=== PATIENT | female | born 2000 | race Caucasian/White ===

== ENCOUNTER 2021-07-20 19:45 | Emergency (ER) | payer MEDICAID, SELFPAY ==
[2021-07-20 19:56] VITALS: BP 108/71; PULSE 104; RESP 14; TEMP 36.7; O2SAT 96
--- NOTE | 2021-07-20 20:17 | ED_ITS ---
HPI - Ear Problem General: Chief complaint: Ear Stated complaint: ear pain Time Seen by Provider: 07/20/21 19:59 History of Present Illness: Patient is a 20-year-old female comes to the ED with bilateral ear pain. Mother is present says patient has an intellectual disability and is helping provide history. She has been complaining of ear pain for the past 2 days. She is not having any other symptoms. Mother is unsure if patient is actually having ear pain and says she has done these kinds of things before where she starts developing symptoms when someone else in the house starts getting sick. She has not noticed patient pulling or touching ears. Mother says she just moved to [place] and would like to get patient set up with a primary care physician. Denies any drainage from ears. Denies any fevers, nasal congestion/drainage, cough, nausea/vomiting, bladder or bowel symptoms. Associated symptoms: Reports ear or mastoid pain (Bilateral); Denies fever(s), headache(s) or neck pain Review of Systems Const: Denies: fever(s), chills or fatigue Eyes: Denies: change in vision or eye discomfort ENMT: Reports: ear or mastoid pain (Bilateral); Denies: throat pain, odynophagia, nasal discharge or nasal congestion Card: Denies: chest pain, palpitations, edema, swelling of feet/ankles, dyspnea on exertion or orthopnea Resp: Denies: dyspnea, productive cough or non-productive cough GI: Denies: abdominal pain, nausea, vomiting, diarrhea, constipation or hematochezia : Denies: flank pain, dysuria or hematuria Musc: Denies: neck pain, back pain or extremity swelling Skin/Breast: Denies: rash or new lesions Neuro: Denies: headache(s), numbness in extremities or weakness in extremities PFS ED PFSH: Medical History No pertinent family history Surgical History No pertinent past surgical history Physical Exam Const: COMMON NORMALS: no acute distress, healthy appearing and alert GENERAL APPEARANCE: cooperative and comfortable HENMT: COMMON NORMALS: normocephalic, external ears normal, EAC's normal and TM's normal bilaterally HEAD & SCALP: normocephalic EXTERNAL EAR: Yes external ears normal EXTERNAL AUDITORY CANAL: EAC's normal TYMPANIC MEMBRANE: TM's normal bilaterally MOUTH: Normal oral and palatal mucosa present THROAT: posterior oropharynx normal and uvula midline Eye: COMMON NORMALS: Equal, round and reactive pupils present and conjunctivae normal CONJUNCTIVA: Yes conjunctivae normal PUPIL: Yes Equal, round and reactive pupils present Neck/C-Spine: COMMON NORMALS: supple GENERAL: Yes normal visual inspection Resp: COMMON NORMALS: normal respiratory effort, No retractions, No use of accessory muscles and clear to auscultation bilaterally AUSCULTATION: clear to auscultation bilaterally Cardio: COMMON NORMALS: regular rate, regular rhythm, S1 normal heart sound present, S2 normal heart sound present, No gallops present (Cardio), No clicks present (Cardio), No murmurs present (Cardio) and Peripheral pulses 2+ throughout RATE: regular rate RHYTHM: regular rhythm HEART SOUNDS: S1 normal heart sound present and S2 normal heart sound present PERIPHERAL P ULSES: Peripheral pulses 2+ throughout GI: COMMON NORMALS: Normal to inspection, nondistended, normoactive bowel sounds present, Soft to palpation, non-tender and no masses PALPATION: Yes Soft to palpation : COMMON NORMALS: Yes no CVA tenderness BLADDER/KIDNEY EXAM: Yes no CVA tenderness Back/Pelvis: COMMON NORMALS: no CVA tenderness Extremity: COMMON NORMALS: normal to inspection Neuro: COMMON NORMALS: moves all extremities SENSORIUM/ORIENTATION: Yes alert Skin: GENERAL SKIN EXAM: dry skin Course Vital Signs: Vital signs: Vital Signs Temperature 98.0 F 07/20/21 19:56 Pulse Rate 104 H 07/20/21 19:56 Respiratory Rate 14 07/20/21 19:56 Blood Pressure 108/71 07/20/21 19:56 Pulse Oximetry 96 07/20/21 19:56 MDM - Ear Medical Decision Making Patient is a 20-year-old female that has been intellectual disability and is brought and is brought in by her mother with bilateral ear pain. Mother says she has been having ear pain now for 3 days. Denies any other symptoms such as fever, upper respiratory symptoms, vomiting, bladder or bowel symptoms. Vitals are stable. Patient has normal ear exam and the rest of exam is benign. Patient and mother are new in town and would like to get a referral to a local primary care doctor for patient to get established with. I placed an order with case management for patient referred to PCP. She was diagnosed with normal ear exam and discharged charged home. Discharge Plan Discharge Patient Disposition: Home Clinical Impression: Normal ear exam Condition: Stable Discharge Orders: Discharge ED (Routine); Ordered 07/20/21 Ordered By: Luis Johnson Discharge Diet: Regular Discharge Activity: Resume usual activity Activity Restrictions/Additional Instructions: Follow-up with medical provider as directed. Case management should be contacting you in the next several days to set up an appointment with a primary care physician for follow-up. Return to the ER or your medical provider if condition worsens. Please read and understand discharge instructions. Thank you for choosing [facility] for your healthcare needs today. Please realize this is an emergency room and that we are providing you with a medical screening exam and this may not be complete and all inclusive of all the testing and or work up that you may need to determine your ailment or severity of your illness. It is very important that you follow up as instructed or that you return to the Emergency Department should you have concerns or if your condition changes or worsens in any way. Coding Level of Care Code ED Network Engineering Advisor for Wanda Fwd Exam Comprehensive
--- NOTE | 2021-07-23 10:29 | DCPLANNER ---
safety and occupational health manager had message to speak with patient about getting established with a primary care physician. safety and occupational health manager called the phone number in the chart, unable to speak with anyone at this time. safety and occupational health manager left a voicemail for patient to return gearcase assembler phone call.
== END 2021-07-20 20:25 | disposition home or self-care (01) ==
PROVIDERS: Emergency Provider Physician Assistant
DX: H92.03 Otalgia, bilateral (principal)
CPT/HCPCS: 99282

== ENCOUNTER 2021-11-18 15:32 | Emergency (ER) | payer MEDICAID, SELFPAY ==
[2021-11-18 15:46] VITALS: BP 110/70; PULSE 85; RESP 16; TEMP 37.1; O2SAT 97
--- NOTE | 2021-11-18 16:43 | W.ED.SKABFB ---
HPI - Skin/Abscess/Foreign Bdy General: Chief complaint: Skin/Abscess/Foreign Body Stated complaint: rash and lump on L side Time Seen by Provider: 11/18/21 16:34 Source: patient Mode of arrival: ambulatory Limitations: no limitations History of Present Illness: 21-year-old female states she had a rash to her lower legs she is seen in urgent care has been trying steroid cream with minimal improvement patient's brother has had a similar rash states is very pruritic denies any shortness of breath denies any worsening improving factors. Associated symptoms: Deny chills, fever(s), nausea or vomiting Review of Systems Const: Denies: fever(s), chills, body aches or change in appetite Eyes: Denies: blurry vision or eye discomfort ENMT: Denies: throat pain or dental pain Card: Denies: chest pain Resp: Denies: dyspnea GI: Denies: abdominal pain, nausea, vomiting or diarrhea : Denies: dysuria Musc: Denies: neck pain or back pain Skin/Breast: Denies: rash Neuro: Denies: headache(s) Psych: Denies: depression Johann/Lymph: Denies: easy bruising All/Imm: Denies: urticaria PFSH ED PFSH: Medical History No pertinent family history Surgical History No pertinent past surgical history Physical Exam Const: COMMON NORMALS: no acute distress, patient oriented x3 and healthy appearing HENMT: COMMON NORMALS: normocephalic and atraumatic HEAD & SCALP: normocephalic and atraumatic Eye: COMMON NORMALS: Equal, round and reactive pupils present PUPIL: Yes Equal, round and reactive pupils present Neck/C-Spine: COMMON NORMALS: full ROM and supple Chest: COMMONS NORMALS: normal inspection of the chest Resp: COMMON NORMALS: normal respiratory effort Cardio: COMMON NORMALS: regular rate, regular rhythm and No murmurs present (Cardio) RATE: regular rate RHYTHM: regular rhythm GI: INSPECTION: Yes normal to inspection Extremity: COMMON NORMALS: normal to inspection Neuro: COMMON NORMALS: patient oriented x3, moves all extremities and no focal motor deficits Psych: COMMON NORMALS: mental status grossly normal, Normal thought process present and cooperative THOUGHT PROCESS: Normal thought process present Skin: COMMON NORMALS: no wounds NARRATIVE SKIN EXAM: Maculopapular rash to bilateral legs that is pruritic in nature Course Vital Signs: Vital signs: Vital Signs Temperature 98.8 F 11/18/21 15:46 Pulse Rate 85 11/18/21 15:46 Respiratory Rate 16 11/18/21 15:46 Blood Pressure 110/70 11/18/21 15:46 Pulse Oximetry 97 11/18/21 15:46 Oxygen Delivery Me thod 11/18/21 15:46 MDM - Skin/Abscess/Foreign Bdy Medicial Decision Making Patient presents with a rash to her legs here is likely allergic in nature we will start her on a Medrol Dosepak patient's brother has the same symptoms does not really appear to be scabies but will treat for scabies as well just in case with permethrin. She is to follow-up with PCP and return if worsening. Discharge Plan Discharge Patient Disposition: Home Clinical Impression: Rash Condition: Stable Prescriptions: New Medrol (Markell) 4 mg tablets,dose pack 4 mg PO DAILY Qty: 21 0RF permethrin 5 % cream 1 applic topical Q14D Qty: 60 0RF Rx Instructions: apply second treatment 14 days after first treatment if live lice remain Discharge Orders: Discharge ED (Routine); Ordered 11/18/21 Ordered By: Severino Javed Discharge Diet: Advance as tolerated Discharge Activity: Resume usual activity Patient Instructions: Acute Rash (ED) Coding Level of Care Code ED Maintenance Technician for Wanda Coleman
[2021-11-18] MEDS: predniSONE 20 mg Tablet 60 MG PO (16:47)
--- NOTE | 2021-11-18 16:51 | PC.NURSE ---
pt had a couple scabbed over lesions by ankles bilateral. did not seem infected and were not open
== END 2021-11-18 16:53 | disposition home or self-care (01) ==
PROVIDERS: Emergency Provider Emergency Medicine
DX: R21 Rash and other nonspecific skin eruption (principal)
CPT/HCPCS: 99283; J7512

== ENCOUNTER 2022-01-31 11:44 | Observation (INO) | payer MEDICAID, SELFPAY ==
[2022-01-31] VITALS (13 sets, daily range): BP systolic 91–116; BP diastolic 44–88; PULSE 125–157; RESP 14–24; TEMP 37.3–37.7; O2SAT 96–100; BMI 16.1
--- NOTE | 2022-01-31 12:47 | W.ED.ABDPA2 ---
Documented by User: STORMY Lorenzo 02/01/22 07:16 HPI - Abdominal Pain General: Chief Complaint: Abdominal Pain Stated Complaint: came from urgent care, possible appendicitis Time Seen by Provider: 01/31/22 12:32 History of Present Illness: Patient is a 21-year-old female comes to the ED with abdominal pain. Patient was sent here by Dr. Rivas urgent care for CT scan for possible appendicitis. Patient states that last night she ate some pizza and since then she has been sick. She reports having multiple episodes of nausea and vomiting since last night and is unable to keep food or fluids down. She also reports some abdominal pain that is in the periumbilical region she describes it as mild. Patient does state that she had a sore throat couple days ago and was diagnosed with strep throat and has been taking amoxicillin for the past 2 to 3 days. Denies any fevers, chills, diarrhea, constipation, dysuria or hematuria. Associated Symptoms: Reports nausea and vomiting; Denies chills, constipation, diarrhea, dysuria, fever(s), hematochezia and hematuria Review of Systems Const: Denies: fever(s), chills or fatigue Eyes: Denies: change in vision or eye discomfort ENMT: Denies: throat pain, odynophagia, nasal discharge or nasal congestion Card: Denies: chest pain, palpitations, edema, swelling of feet/ankles, dyspnea on exertion or orthopnea Resp: Denies: dyspnea, productive cough or non-productive cough GI: Reports: abdominal pain, nausea and vomiting; Denies: diarrhea, constipation or hematochezia : Denies: flank pain, dysuria or hematuria Musc: Denies: neck pain, back pain or extremity swelling Skin/Breast: Denies: rash or new lesions Neuro: Denies: headache(s), numbness in extremities or weakness in extremities PFSH ED PFSH: Medical History No pertinent family history Surgical History No pertinent past surgical history Family History Denies family history of CAD (coronary artery disease) Social History (Reviewed 02/01/22 @ 07:08 by ASHLEY Gutierrez Smoking and tobacco status: never smoked Alcohol intake: never Substance/Drug Use: never Household members: family Housing: House Physical Exam Const: COMMON NORMALS: patient oriented x3 and alert GENERAL APPEARANCE: cooperative NUTRITIONAL APPEARANCE: thin HENMT: COMMON NORMALS: normocephalic HEAD & SCALP: normocephalic MOUTH: Normal oral and palatal mucosa present THROAT: posterior oropharynx normal and uvula midline Eye: GENERAL EYE: appearance normal, both eyes and all related structures Neck/C-Spine: COMMON NORMALS: supple GENERAL: Yes normal visual inspection Resp: COMMON NORMALS: normal respiratory effort, No retractions, No use of accessory muscles and clear to auscultation bilaterally AUSCULTATION: clear to auscultation bilaterally Cardio: COMMON NORMALS: regular rhythm, S1 normal heart sound present, S2 normal heart sound present, No gallops present (Cardio), No clicks present (Cardio), No murmurs present (Cardio) and Peripheral pulses 2+ throughout RATE: tachycardic RHYTHM: regular rhythm HEART SOUNDS: S1 normal heart sound present and S2 normal heart sound present PERIPHERAL PULSES: Peripheral pulses 2+ throughout GI: COMMON NORMALS: Normal to inspection, nondistended, normoactive bowel sounds present, Soft to palpation and no masses PALPATION: Yes Soft to palpation and Yes Tenderness to palpation present (GI) Details: RLQ : COMMON NORMALS: Yes no CVA tenderness BLADDER/KIDNEY EXAM: Yes no CVA tenderness Back/Pelvis: COMMON NORMALS: no CVA tenderness Extremity: COMMON NORMALS: normal to inspection Neuro: COMMON NORMALS: patient oriented x3 SENSORIUM/ORIENTATION: Yes alert GAIT: Yes Normal gait present Skin: GENERAL SKIN EXAM: dry skin Course Vital Signs: Vital signs: Vital Signs Temperature 97.9 F 02/01/22 04:46 Pulse Rate 97 02/01/22 04:46 Respiratory Rate 18 02/01/22 04:46 Blood Pressure 96/60 02/01/22 04:46 Pulse Oximetry 98 02/01/22 04:46 Oxygen Delivery Me thod 01/31/22 22:09 MDM - Abdominal Pain Lab Data I reviewed the patient's lab results. 01/31/22 12:42 01/31/22 12:42 Labs/Radiology: Radiology Impressions Abdomen/Pelvis CT 01/31/22 13:46 IMPRESSION: 1. Appendix not well visualized. No evidence of acute appendicitis. Motion degrades some images in the lower abdomen and pelvis. 2. Multicystic RIGHT ovary with the largest cyst measure 1.5 x 1.6cm with peripheral enhancement. Small amount of surrounding fluid. Small amount of free fluid in the cul-de-sac. 3. No other acute findings. 4. Tiny fat-containing umbilical hernia. 5. No hydronephrosis in either kidney. Normal renal parenchymal enhancement. Chest CTA 01/31/22 16:14 IMPRESSION: No acute findings. Laboratory Results WBC 16.3 10^3/uL (4.5-13.0) H 01/31/22 12:42 RBC 4.85 10^6/uL (4.1-5.3) 01/31/22 12:42 Hgb 14.0 g/dL (11.5-15.3) 01/31/22 12:42 Hct 42.7 % (37.0-47.0) 01/31/22 12:42 MCV 88.0 fl (81-99) 01/31/22 12:42 MCH 28.9 pg (28.0-34.0) 01/31/22 12:42 MCHC 32.8 g/dL (30.0-36.0) 01/31/22 12:42 RDW 12.7 % (12.1-15.1) 01/31/22 12:42 Plt Count 350 10^3/cmm (130-400) 01/31/22 12:42 MPV 9.3 fL (7.4-10.4) 01/31/22 12:42 Neut % (Auto) 93.7 % 01/31/22 12:42 Lymph % (Auto) 2.7 % 01/31/22 12:42 Oliver % (Auto) 3.0 % 01/31/22 12:42 Eos % (Auto) 0.0 % 01/31/22 12:42 Baso % (Auto) 0.2 % 01/31/22 12:42 Neut # (Auto) 15.23 10^3/uL (1.8-8.0) H 01/31/22 12:42 Lymph # (Auto) 0.4 10^3/uL (1.5-6.5) L 01/31/22 12:42 [place] # (Auto) 0.5 10^3/uL (0.2-0.9) 01/31/22 12:42 Eos # (Auto) 0.0 10^3/uL (0.0-0.8) 01/31/22 12:42 Baso # (Auto) 0.0 10^3/uL (0.0-0.1) 01/31/22 12:42 Nucleated RBC % (auto) 0 % 01/31/22 12:42 Nucleated RBCs # 0.0 /100WBC 01/31/22 12:42 Sodium 138 mmol/L (136-145) 01/31/22 12:42 Potassium 3.7 mmol/L (3.5-5.1) 01/31/22 12:42 Chloride 102 mmol/L (98-107) 01/31/22 12:42 Carbon Dioxide 23 mmol/L (22-29) 01/31/22 12:42 Anion Gap 16.7 (5-19) 01/31/22 12:42 BUN 14 mg/dL (6-20) 01/31/22 12:42 Creatinine 0.4 mg/dL (0.5-0.9) L 01/31/22 12:42 GFR Calculation 203.5 mL/min (90-130) H 01/31/22 12:42 Glucose 96 mg/dL (65-115) 01/31/22 12:42 Calculated Osmolality 286 mOsm/kg (285-295) 01/31/22 12:42 Lactic Acid 0.6 mmol/L (0.5-2.2) 01/31/22 17:45 Calcium 8.5 mg/dL (8.5-10.5) 01/31/22 12:42 Total Bilirubin 0.4 mg/dL (0.15-1.2) 01/31/22 12:42 AST 18 U/L (0-32) 01/31/22 12:42 ALT 16 U/L (0-33) 01/31/22 12:42 Alkaline Phosphatase 68 U/L (35-105) 01/31/22 12:42 Total Protein 7.4 g/dL (6.6-8.7) 01/31/22 12:42 Albumin 4.0 g/dL (3.5-5.2) 01/31/22 12:42 Globulin 3.4 g/dL (1.3-4.6) 01/31/22 12:42 Lipase 14 U/L (13-60) 01/31/22 12:42 Procalcitonin 0.28 ng/mL (0-0.5) 01/31/22 12:42 TSH 0.55 uIU/mL (0.27-4.20) 01/31/22 12:42 Free T4 0.99 ng/dL (0.82-1.77) 01/31/22 12:42 HCG, Qual Negative (Negative) 01/31/22 12:42 Urine Color Yellow (Yellow) 01/31/22 13:14 Urine Appearance Clear (CLEAR) 01/31/22 13:14 Urine pH 7 (5-7) 01/31/22 13:14 Ur Specific [place] 1.010 (1.005-1.030) 01/31/22 13:14 Urine Protein Neg (Negative) 01/31/22 13:14 Urine Glucose (UA) Norm (Normal) 01/31/22 13:14 Urine Ketones Negative (Negative) 01/31/22 13:14 Urine Blood Neg (Negative) 01/31/22 13:14 Urine Nitrate Negative (Negative) 01/31/22 13:14 Urine Bilirubin Neg (Negative) 01/31/22 13:14 Urine Urobilinogen Norm mg/dL (Negative) 01/31/22 13:14 Ur Leukocyte Esterase Negative (Negative) 01/31/22 13:14 Urine Opiates Screen Negative ng/mL (Negative) 01/31/22 13:14 Ur Barbiturates Screen Negative ng/mL (Negative) 01/31/22 13:14 Ur Phencyclidine Scrn Negative ng/mL (Negative) 01/31/22 13:14 Ur Amphetamines Screen Negative ng/mL (Negative) 01/31/22 13:14 U Benzodiazepines Scrn Negative ng/mL (Negative) 01/31/22 13:14 Urine Cocaine Screen Negative ng/mL (Negative) 01/31/22 13:14 U Marijuana (THC) Screen Negative ng/mL (Negative) 01/31/22 13:14 Monoscreen Negative (Negative) 01/31/22 12:42 Influenza Type A Ag negative (Negative) 01/31/22 16:42 Influenza Type B Ag negative (Negative) 01/31/22 16:42 SARS-CoV-2 Ag (Rapid) Negative (Negative) 01/31/22 16:42 EKG Data EKG 1: EKG interpretation date: 01/31/22 Interpretation: Sinus tachycardia. [address] segment elevation or depression seen. EKG 2: EKG interpretation date: 01/31/22 EKG interpretation time: 16:45 Interpretation: Sinus tachycardia, 136 bpm, no ST segment ovation depression seen. No other acute findings noted. Discharge Plan Discharge Patient Disposition: Placed in Observation Admit Provider: Elan Garcia Clinical Impression: Sinus tachycardia, Streptococcal pharyngitis Sign Out Sign Out Data: Patient Sign Out occurred on 01/31/22 at 17:07. Patient's care was discussed, and care was transferred from to Juan Pablo Rojas DO. Coding Level of Care Code ED Charge Coordinator for Chg Fwd Exam Comprehensive Documented by User: Juan Pablo Rojas DO 02/01/22 07:10 HPI - Abdominal Pain General: Chief Complaint: Abdominal Pain Stated Complaint: came from urgent care, possible appendicitis Time Seen by Provider: 01/31/22 12:32 History of Present Illness: Patient is a 21-year-old female comes to the ED with abdominal pain. Patient was sent here by Dr. Rivas urgent care for CT scan for possible appendicitis. Patient states that last night she ate some pizza and since then she has been sick. She reports having multiple episodes of nausea and vomiting since last night and is unable to keep food or fluids down. She also reports some abdominal pain that is in the periumbilical region she describes it as mild. Patient does state that she had a sore throat couple days ago and was diagnosed with strep throat and has been taking amoxicillin for the past 2 to 3 days. Denies any fevers, chills, diarrhea, constipation, dysuria or hematuria. 21-year-old female care assumed from midlevel who been seeing her initially. She was sent in from an outpatient clinic with a concern of acute appendicitis. She is no longer having any abdominal pain however she remains extremely tachycardic midlevel been talking to her about her work-up as it progressed so far other than her tachycardia there is been no significant finding in talking the patient she did not have any nausea vomiting or diarrhea at this point no chest or abdominal pain at this time she denies any recent upper respiratory symptoms. Initially she is describing pain is periumbilical. She did recently have strep throat and is currently on amoxicillin for it but her throat symptoms have already improved. No dysuria urgency or frequency no diarrhea. Earlier she had some vomiting but that has resolved as well. MD elicited complaint: abdominal pain Pertinent past history: other (Recently treated for strep pharyngitis) Onset (ago): day(s) Location: Periumbilical Quality: cramping Exacerbating factors: nothing Relieving factors: nothing Associated Symptoms: Reports GI cramping, nausea, poor appetite and vomiting; Denies anorexia, belching, bloating, change in bowel habits, change in stool character, chills, coffee ground emesis, constipation, diarrhea, dyspepsia, dysuria, excessive flatus, fever(s), heartburn, hematochezia, hematuria, hematemesis, fecal incontinence, loose stools, melena and syncope Review of Systems Const: Denies: fever(s) or chills ENMT: Denies: throat pain, ear or mastoid pain, nasal discharge or nasal congestion Card: Denies: chest pain, palpitations, irregular heart rhythm or syncope Resp: Denies: dyspnea, productive cough or non-productive cough GI: Reports: abdominal pain, nausea, vomiting and GI cramping; Denies: hematemesis, coffee ground emesis, heartburn, diarrhea, constipation, bloating, belching, excessive flatus, fecal incontinence, change in bowel habits, change in stool character, hematochezia or melena : Denies: dysuria or hematuria Skin/Breast: Denies: rash or pruritus PFSH ED PFSH: Medical History No pertinent family history Surgical History No pertinent past surgical history Family History Denies family history of CAD (coronary artery disease) Social History Smoking and tobacco status: never smoked Alcohol intake: never Substance/Drug Use: never Household members: family Housing: House Physical Exam Const: GENERAL APPEARANCE: cooperative and comfortable ORIENTATION/CONSCIOUSNESS: Yes awake, Yes oriented to person, Yes oriented to place and Yes oriented to time HENMT: COMMON NORMALS: normocephalic, atraumatic and hearing grossly normal bilaterally HEAD & SCALP: normocephalic and atraumatic Resp: COMMON NORMALS: normal respiratory effort, No retractions, No use of accessory muscles and clear to auscultation bilaterally AUSCULTATION: clear to auscultation bilaterally Cardio: COMMON NORMALS: regular rhythm and No murmurs present (Cardio) RATE: tachycardic RHYTHM: regular rhythm GI: COMMON NORMALS: Soft to palpation and No hepatosplenomegaly present AUSCULTATION: Yes normoactive bowel sounds PALPATION: Yes Soft to palpation, No Tenderness to palpation present (GI), No Guarding due to palpation present (GI) and Yes No hepatosplenomegaly present Extremity: COMMON NORMALS: normal to inspection, capillary refill normal, no clubbing, cyanosis or edema, no calf tenderness and no pedal edema Neuro: SENSORIUM/ORIENTATION: Yes oriented to person, Yes oriented to place and Yes oriented to time Skin: COMMON NORMALS: no rashes or lesions noted GENERAL SKIN EXAM: no rashes or lesions noted Course Vital Signs: Vital signs: Vital Signs Temperature 97.9 F 02/01/22 04:46 Pulse Rate 97 02/01/22 04:46 Respiratory Rate 18 02/01/22 04:46 Blood Pressure 96/60 02/01/22 04:46 Pulse Oximetry 98 02/01/22 04:46 Oxygen Delivery Me thod 01/31/22 22:09 MDM - Abdominal Pain Medical Decision Making Discussed with Dr. Swann. Despite 2 L of fluid which is a significant fluid bolus given her weight of 41 kg she is still remains very tachycardic. Will add COVID PCR Monospot blood cultures. Discussed with Dr. Swann will place on hobs for tachycardia continue IV fluids and monitor. The other concern for this patient would be that the strep has led to a septicemia although she has no rash it might explain her tachycardia. Blood cultures have been done. Medical Records I reviewed the patient's medical records. Lab Data I reviewed the patient's lab results. 01/31/22 12:42 01/31/22 12:42 Labs/Radiology: Radiology Impressions Abdomen/Pelvis CT 01/31/22 13:46 IMPRESSION: 1. Appendix not well visualized. No evidence of acute appendicitis. Motion degrades some images in the lower abdomen and pelvis. 2. Multicystic RIGHT ovary with the largest cyst measure 1.5 x 1.6cm with peripheral enhancement. Small amount of surrounding fluid. Small amount of free fluid in the cul-de-sac. 3. No other acute findings. 4. Tiny fat-containing umbilical hernia. 5. No hydronephrosis in either kidney. Normal renal parenchymal enhancement. Chest CTA 01/31/22 16:14 IMPRESSION: No acute findings. Laboratory Results WBC 16.3 10^3/uL (4.5-13.0) H 01/31/22 12:42 RBC 4.85 10^6/uL (4.1-5.3) 01/31/22 12:42 Hgb 14.0 g/dL (11.5-15.3) 01/31/22 12:42 Hct 42.7 % (37.0-47.0) 01/31/22 12:42 MCV 88.0 fl (81-99) 01/31/22 12:42 MCH 28.9 pg (28.0-34.0) 01/31/22 12:42 MCHC 32.8 g/dL (30.0-36.0) 01/31/22 12:42 RDW 12.7 % (12.1-15.1) 01/31/22 12:42 Plt Count 350 10^3/cmm (130-400) 01/31/22 12:42 MPV 9.3 fL (7.4-10.4) 01/31/22 12:42 Neut % (Auto) 93.7 % 01/31/22 12:42 Lymph % (Auto) 2.7 % 01/31/22 12:42 [place] % (Auto) 3.0 % 01/31/22 12:42 Eos % (Auto) 0.0 % 01/31/22 12:42 Baso % (Auto) 0.2 % 01/31/22 12:42 Neut # (Auto) 15.23 10^3/uL (1.8-8.0) H 01/31/22 12:42 Lymph # (Auto) 0.4 10^3/uL (1.5-6.5) L 01/31/22 12:42 [place] # (Auto) 0.5 10^3/uL (0.2-0.9) 01/31/22 12:42 Eos # (Auto) 0.0 10^3/uL (0.0-0.8) 01/31/22 12:42 Baso # (Auto) 0.0 10^3/uL (0.0-0.1) 01/31/22 12:42 Nucleated RBC % (auto) 0 % 01/31/22 12:42 Nucleated RBCs # 0.0 /100WBC 01/31/22 12:42 Sodium 138 mmol/L (136-145) 01/31/22 12:42 Potassium 3.7 mmol/L (3.5-5.1) 01/31/22 12:42 Chloride 102 mmol/L (98-107) 01/31/22 12:42 Carbon Dioxide 23 mmol/L (22-29) 01/31/22 12:42 Anion Gap 16.7 (5-19) 01/31/22 12:42 BUN 14 mg/dL (6-20) 01/31/22 12:42 Creatinine 0.4 mg/dL (0.5-0.9) L 01/31/22 12:42 GFR Calculation 203.5 mL/min (90-130) H 01/31/22 12:42 Glucose 96 mg/dL (65-115) 01/31/22 12:42 Calculated Osmolality 286 mOsm/kg (285-295) 01/31/22 12:42 Lactic Acid 0.6 mmol/L (0.5-2.2) 01/31/22 17:45 Calcium 8.5 mg/dL (8.5-10.5) 01/31/22 12:42 Total Bilirubin 0.4 mg/dL (0.15-1.2) 01/31/22 12:42 AST 18 U/L (0-32) 01/31/22 12:42 ALT 16 U/L (0-33) 01/31/22 12:42 Alkaline Phosphatase 68 U/L (35-105) 01/31/22 12:42 Total Protein 7.4 g/dL (6.6-8.7) 01/31/22 12:42 Albumin 4.0 g/dL (3.5-5.2) 01/31/22 12:42 Globulin 3.4 g/dL (1.3-4.6) 01/31/22 12:42 Lipase 14 U/L (13-60) 01/31/22 12:42 Procalcitonin 0.28 ng/mL (0-0.5) 01/31/22 12:42 TSH 0.55 uIU/mL (0.27-4.20) 01/31/22 12:42 Free T4 0.99 ng/dL (0.82-1.77) 01/31/22 12:42 HCG, Qual Negative (Negative) 01/31/22 12:42 Urine Color Yellow (Yellow) 01/31/22 13:14 Urine Appearance Clear (CLEAR) 01/31/22 13:14 Urine pH 7 (5-7) 01/31/22 13:14 Ur Specific [place] 1.010 (1.005-1.030) 01/31/22 13:14 Urine Protein Neg (Negative) 01/31/22 13:14 Urine Glucose (UA) Norm (Normal) 01/31/22 13:14 Urine Ketones Negative (Negative) 01/31/22 13:14 Urine Blood Neg (Negative) 01/31/22 13:14 Urine Nitrate Negative (Negative) 01/31/22 13:14 Urine Bilirubin Neg (Negative) 01/31/22 13:14 Urine Urobilinogen Norm mg/dL (Negative) 01/31/22 13:14 Ur Leukocyte Esterase Negative (Negative) 01/31/22 13:14 Urine Opiates Screen Negative ng/mL (Negative) 01/31/22 13:14 Ur Barbiturates Screen Negative ng/mL (Negative) 01/31/22 13:14 Ur Phencyclidine Scrn Negative ng/mL (Negative) 01/31/22 13:14 Ur Amphetamines Screen Negative ng/mL (Negative) 01/31/22 13:14 U Benzodiazepines Scrn Negative ng/mL (Negative) 01/31/22 13:14 Urine Cocaine Screen Negative ng/mL (Negative) 01/31/22 13:14 U Marijuana (THC) Screen Negative ng/mL (Negative) 01/31/22 13:14 Monoscreen Negative (Negative) 01/31/22 12:42 Influenza Type A Ag negative (Negative) 01/31/22 16:42 Influenza Type B Ag negative (Negative) 01/31/22 16:42 SARS-CoV-2 Ag (Rapid) Negative (Negative) 01/31/22 16:42 Discharge Plan Discharge Patient Disposition: Placed in Observation Admit Provider: Elan Garcia Clinical Impression: Sinus tachycardia, Streptococcal pharyngitis Sign Out Sign Out Data: Patient Sign Out occurred on 01/31/22 at 17:07. Patient's care was discussed, and care was transferred from to Juan Pablo Rojas DO. Coding Level of Care Code ED Charge Coordinator for Chg Fwd Exam Comprehensive Documented by User: Ruben Cuadra DO 01/31/22 19:44 HPI - Abdominal Pain General: Chief Complaint: Abdominal Pain Stated Complaint: came from urgent care, possible appendicitis Time Seen by Provider: 01/31/22 12:32 [facility] ED PFSH: Medical History No pertinent family history Surgical History No pertinent past surgical history Family History Denies family history of CAD (coronary artery disease) Social History Smoking and tobacco status: never smoked Alcohol intake: never Substance/Drug Use: never Household members: family Housing: House Course Vital Signs: Vital signs: Vital Signs Temperature 97.9 F 02/01/22 04:46 Pulse Rate 97 02/01/22 04:46 Respiratory Rate 18 02/01/22 04:46 Blood Pressure 96/60 02/01/22 04:46 Pulse Oximetry 98 02/01/22 04:46 Oxygen Delivery Me thod 01/31/22 22:09 MDM - Abdominal Pain Medical Decision Making 19:35: Added dx and disposition. Lab Data 01/31/22 12:42 01/31/22 12:42 Labs/Radiology: Radiology Impressions Abdomen/Pelvis CT 01/31/22 13:46 IMPRESSION: 1. Appendix not well visualized. No evidence of acute appendicitis. Motion degrades some images in the lower abdomen and pelvis. 2. Multicystic RIGHT ovary with the largest cyst measure 1.5 x 1.6cm with peripheral enhancement. Small amount of surrounding fluid. Small amount of free fluid in the cul-de-sac. 3. No other acute findings. 4. Tiny fat-containing umbilical hernia. 5. No hydronephrosis in either kidney. Normal renal parenchymal enhancement. Chest CTA 01/31/22 16:14 IMPRESSION: No acute findings. Laboratory Results WBC 16.3 10^3/uL (4.5-13.0) H 01/31/22 12:42 RBC 4.85 10^6/uL (4.1-5.3) 01/31/22 12:42 Hgb 14.0 g/dL (11.5-15.3) 01/31/22 12:42 Hct 42.7 % (37.0-47.0) 01/31/22 12:42 MCV 88.0 fl (81-99) 01/31/22 12:42 MCH 28.9 pg (28.0-34.0) 01/31/22 12:42 MCHC 32.8 g/dL (30.0-36.0) 01/31/22 12:42 RDW 12.7 % (12.1-15.1) 01/31/22 12:42 Plt Count 350 10^3/cmm (130-400) 01/31/22 12:42 MPV 9.3 fL (7.4-10.4) 01/31/22 12:42 Neut % (Auto) 93.7 % 01/31/22 12:42 Lymph % (Auto) 2.7 % 01/31/22 12:42 [place] % (Auto) 3.0 % 01/31/22 12:42 Eos % (Auto) 0.0 % 01/31/22 12:42 Baso % (Auto) 0.2 % 01/31/22 12:42 Neut # (Auto) 15.23 10^3/uL (1.8-8.0) H 01/31/22 12:42 Lymph # (Auto) 0.4 10^3/uL (1.5-6.5) L 01/31/22 12:42 [place] # (Auto) 0.5 10^3/uL (0.2-0.9) 01/31/22 12:42 Eos # (Auto) 0.0 10^3/uL (0.0-0.8) 01/31/22 12:42 Baso # (Auto) 0.0 10^3/uL (0.0-0.1) 01/31/22 12:42 Nucleated RBC % (auto) 0 % 01/31/22 12:42 Nucleated RBCs # 0.0 /100WBC 01/31/22 12:42 Sodium 138 mmol/L (136-145) 01/31/22 12:42 Potassium 3.7 mmol/L (3.5-5.1) 01/31/22 12:42 Chloride 102 mmol/L (98-107) 01/31/22 12:42 Carbon Dioxide 23 mmol/L (22-29) 01/31/22 12:42 Anion Gap 16.7 (5-19) 01/31/22 12:42 BUN 14 mg/dL (6-20) 01/31/22 12:42 Creatinine 0.4 mg/dL (0.5-0.9) L 01/31/22 12:42 GFR Calculation 203.5 mL/min (90-130) H 01/31/22 12:42 Glucose 96 mg/dL (65-115) 01/31/22 12:42 Calculated Osmolality 286 mOsm/kg (285-295) 01/31/22 12:42 Lactic Acid 0.6 mmol/L (0.5-2.2) 01/31/22 17:45 Calcium 8.5 mg/dL (8.5-10.5) 01/31/22 12:42 Total Bilirubin 0.4 mg/dL (0.15-1.2) 01/31/22 12:42 AST 18 U/L (0-32) 01/31/22 12:42 ALT 16 U/L (0-33) 01/31/22 12:42 Alkaline Phosphatase 68 U/L (35-105) 01/31/22 12:42 Total Protein 7.4 g/dL (6.6-8.7) 01/31/22 12:42 Albumin 4.0 g/dL (3.5-5.2) 01/31/22 12:42 Globulin 3.4 g/dL (1.3-4.6) 01/31/22 12:42 Lipase 14 U/L (13-60) 01/31/22 12:42 Procalcitonin 0.28 ng/mL (0-0.5) 01/31/22 12:42 TSH 0.55 uIU/mL (0.27-4.20) 01/31/22 12:42 Free T4 0.99 ng/dL (0.82-1.77) 01/31/22 12:42 HCG, Qual Negative (Negative) 01/31/22 12:42 Urine Color Yellow (Yellow) 01/31/22 13:14 Urine Appearance Clear (CLEAR) 01/31/22 13:14 Urine pH 7 (5-7) 01/31/22 13:14 Ur Specific [place] 1.010 (1.005-1.030) 01/31/22 13:14 Urine Protein Neg (Negative) 01/31/22 13:14 Urine Glucose (UA) Norm (Normal) 01/31/22 13:14 Urine Ketones Negative (Negative) 01/31/22 13:14 Urine Blood Neg (Negative) 01/31/22 13:14 Urine Nitrate Negative (Negative) 01/31/22 13:14 Urine Bilirubin Neg (Negative) 01/31/22 13:14 Urine Urobilinogen Norm mg/dL (Negative) 01/31/22 13:14 Ur Leukocyte Esterase Negative (Negative) 01/31/22 13:14 Urine Opiates Screen Negative ng/mL (Negative) 01/31/22 13:14 Ur Barbiturates Screen Negative ng/mL (Negative) 01/31/22 13:14 Ur Phencyclidine Scrn Negative ng/mL (Negative) 01/31/22 13:14 Ur Amphetamines Screen Negative ng/mL (Negative) 01/31/22 13:14 U Benzodiazepines Scrn Negative ng/mL (Negative) 01/31/22 13:14 Urine Cocaine Screen Negative ng/mL (Negative) 01/31/22 13:14 U Marijuana (THC) Screen Negative ng/mL (Negative) 01/31/22 13:14 Monoscreen Negative (Negative) 01/31/22 12:42 Influenza Type A Ag negative (Negative) 01/31/22 16:42 Influenza Type B Ag negative (Negative) 01/31/22 16:42 SARS-CoV-2 Ag (Rapid) Negative (Negative) 01/31/22 16:42 Discharge Plan Discharge Patient Disposition: Placed in Observation Admit Provider: Elan Garcia Clinical Impression: Sinus tachycardia, Streptococcal pharyngitis Sign Out Sign Out Data: Patient Sign Out occurred on 01/31/22 at 17:07. Patient's care was discussed, and care was transferred from to Juan Pablo Rojas DO. Coding Level of Care Code ED Charge Coordinator for Perlag Fwd Exam Comprehensive
[2022-01-31] MEDS: sodium chloride 0.9% 1,000 ML 999 ML IV ×2 (12:52→14:59)
[2022-01-31] MEDS: ondansetron 2 mg/ML SDV 2 mL 4 MG IVP (12:53)
[2022-01-31 13:02] LABS: Basophils % 0.2 %; Hematocrit 42.7 % (37.0-47.0); Lymphocytes # 0.4 10^3/uL (1.5-6.5); Lymphocytes % 2.7 %; Mean Corpuscular HGB Conc 32.8 g/dL (30.0-36.0); Mean Corpuscular Hemoglobin 28.9 pg (28.0-34.0); Mean Platelet Volume 9.3 fL (7.4-10.4); Monocytes # 0.5 10^3/uL (0.2-0.9); Neutrophils # 15.23 10^3/uL (1.8-8.0); Neutrophils % 93.7 %; Nucleated Red Blood Cells % 0 %; Platelet Count 350 10^3/cmm (130-400); Red Blood Count 4.85 10^6/uL (4.1-5.3); Red Cell Distribution Width 12.7 % (12.1-15.1); White Blood Count 16.3 10^3/uL (4.5-13.0)
--- NOTE | 2022-01-31 13:24 | PC.NURSE ---
PT PLACED ON CONTINUOUS SPO2, NIBP, AND CM.
[2022-01-31 13:33] LABS: Add Urine Microscopic? NO; Charge for UA Resulting for Rev
[2022-01-31 13:38] LABS: Bilirubin Urine Neg (Negative); Blood Urine Neg (Negative); Glucose Urine UA Norm (Normal); Ketones Urine Negative (Negative); Leukocyte Esterase Urine Negative (Negative); Nitrate Urine Negative (Negative); Protein Urine Neg (Negative); Urine Appearance Clear (CLEAR); Urine Color Yellow (Yellow); Urobilinogen Urine Norm (Negative); pH Urine 7 (5-7)
[2022-01-31 13:38] LABS: Alanine Aminotransferase 16 U/L (0-33); Alkaline Phosphatase 68 U/L (35-105); Anion Gap 16.7 (5-19); Aspartate Amino Transferase 18 U/L (0-32); Blood Urea Nitrogen 14 mg/dL (6-20); Calcium 8.5 mg/dL (8.5-10.5); Carbon Dioxide 23 mmol/L (22-29); Chloride 102 mmol/L (98-107); Globulin 3.4 g/dL (1.3-4.6); Glomerular Filtration Rate 203.5 mL/min (90-130); Glucose 96 mg/dL (65-115); Lipase 14 U/L (13-60); Osmolality Calculated 286 mOsm/kg (285-295); Potassium 3.7 mmol/L (3.5-5.1); Sodium 138 mmol/L (136-145); Total Bilirubin 0.4 mg/dL (0.15-1.2); Total Protein 7.4 g/dL (6.6-8.7)
--- NOTE | 2022-01-31 13:38 | ECG_ITS ---
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 Measurements Intervals [place] Rate: 133 P: 57 NM: 152 QRS: 71 QRSD: 89 T: 44 QT: 303 QTc: 451 Interpretive Statements SINUS TACHYCARDIA POSSIBLE RIGHT VENTRICULAR CONDUCTION DELAY [RSR (QR) IN V1/V2] ABNORMAL RHYTHM ECG No previous ECG available for comparison Electronically Signed On 02-01-2022 7:49:40 POKER IN by Oksana Raygoza M.D. [id number]
--- NOTE | 2022-01-31 13:46 | CT_ITS ---
WS: [id number] CT ABDOMEN PELVIS TECHNIQUE: Contrast-enhanced CT of the abdomen and pelvis with coronal and sagittal reformatted image s. CLINICAL INFORMATION: periumbilical pain and RLQ pain, n/v COMPARISON: None. DLP: 310.[address] scans at [facility] use at least one of these dose optimization techniques: automated e xposure control; mA and/or kV adjustment per patient size (includes targeted exams where dose is matc hed to clinical indication); or iterative reconstruction. FINDINGS: Normal gallbladder. Multicystic RIGHT ovary with peripheral enhancement. Largest cyst measures 1.5 x 1.6 cm with a small amount of surrounding fluid. Small amount of free fluid in the cul-de-sac. Physio logic uterine enhancement with endometrial thickening or fluid. Appendix is not visualized but no sonya dence of acute appendicitis. Images in the lower abdomen are degraded due to motion artifact. Tiny fa t-containing umbilical hernia. Mild lumbar curve. Normal liver. Normal portal vein and splenic vein.. Small splenule. Lung bases are well aerated. Adre nal glands are normal. Normal renal parenchymal enhancement. No hydronephrosis. Normal caliber abdomi nal aorta. CT/CT abdomen pelvis w con* [id number] IMPRESSION: 1. Appendix not well visualized. No evidence of acute appendicitis. Motion deg rades some images in the lower abdomen and pelvis. 2. Multicystic RIGHT ovary with the largest cyst measure 1.5 x 1.6cm with martin pheral enhancement. Small amount of surrounding fluid. Small amount of free flu id in the cul-de-sac. 3. No other acute findings. 4. Tiny fat-containing umbilical hernia. 5. No hydronephrosis in either kidney. Normal renal parenchymal enhancement.
[2022-01-31 13:48] LABS: HCG, Serum Qual Negative (Negative)
[2022-01-31] MEDS: iohexol 350 mg/mL 500 mL Btl (per mL) IV ×2 (14:00→16:32)
--- NOTE | 2022-01-31 16:14 | CTR_ITS ---
PROCEDURE INFORMATION: Exam: CTA Chest With Contrast Exam date and time: 01/31/2022 4:25 PM Age: 21 years old Clinical indication: Hyperventilation and tachypnea; Additional info: Tachycardic TECHNIQUE: Imaging protocol: Computed tomographic angiography of the chest with contrast. 3D rendering (Not supervised by radiologist): MIP and/or 3D reconstructed images were created by the technologist. Radiation optimization: All CT scans at this facility use at least one of these dose optimization techniques: automated exposure control; mA and/or kV adjustment per patient size (includes targeted exams where dose is matched to clinical indication); or iterative reconstruction. Contrast material: OMNI 350; Contrast volume: 58 ml; Contrast route: INTRAVENOUS (IV); COMPARISON: CT abdomen pelvis w con* [id number] 01/31/2022 1:53 PM RADIATION DOSE METRICS: Total DLP (mGy-cm): 132.79 FINDINGS: Pulmonary arteries: Normal. No pulmonary emboli. Aorta: Unremarkable. No aortic aneurysm. No aortic dissection. Lungs: Unremarkable. No consolidation. No masses. Pleural spaces: Unremarkable. No pneumothorax. No pleural effusion. Heart: Unremarkable. No cardiomegaly. No pericardial effusion. Lymph nodes: Unremarkable. No enlarged lymph nodes. Bones/joints: Unremarkable. No acute fracture. Soft tissues: Unremarkable. CT/CT angio chest PE protcl [id number] IMPRESSION: No acute findings.
--- NOTE | 2022-01-31 16:44 | ECG_ITS ---
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 Measurements Intervals [place] Rate: 136 P: 55 OR: 148 QRS: 67 QRSD: 86 T: 53 QT: 295 QTc: 444 Interpretive Statements SINUS TACHYCARDIA POSSIBLE RIGHT VENTRICULAR CONDUCTION DELAY [RSR (QR) IN V1/V2] Compared to ECG 01/31/2022 13:38:21 No significant changes Electronically Signed On 02-01-2022 7:45:33 MECHANICAL ESTIMATOR by Oksana Raygoza M.D. [id number]
[2022-01-31 17:07] LABS: Amphetamines Screen Urine Negative (Negative); Barbiturates Screen Urine Negative (Negative); Benzodiazepines Screen Urine Negative (Negative); Cocaine Screen Urine Negative (Negative); Opiate Screen Urine Negative (Negative); PCP Screen Urine Negative (Negative); THC Screen Urine Negative (Negative)
[2022-01-31 17:22] LABS: Influenza A by IFA negative (Negative); Influenza B by IFA negative (Negative)
[2022-01-31 17:23] LABS: SARS Covid-2 Antigen Negative (Negative)
[2022-01-31 18:06] LABS: Lactic Sepsis W/Reflex 0.6 mmol/L (0.5-2.2)
[2022-01-31 18:39] LABS: Monoscreen Negative (Negative)
[2022-01-31 19:36] LABS: Free T4 Free Thyroxine 0.99 ng/dL (0.82-1.77)
--- NOTE | 2022-01-31 19:38 | PM.HP ---
Providers/Chief Complaint Chief Complaint: came from urgent care, possible appendicitis History of Present Illness Ronda Davidson is a 21 year old female with intellectual disability presented to hospital for recurrent vomiting. Mother is at the bedside who is stating that her symptoms started around midnight yesterday after eating a pizza, in total she has had 13 episodes of emesis. No fever has been noticed. No shortness of breath or chest pain or any signs of diarrhea. Of note, she was diagnosed with strep throat 4 days ago when her mother took her son for sore throat to the PCP, he was diagnosed with tonsillitis and at that time Ronda got tested for strep throat. In total she has taken 8 doses of amoxicillin. She is endorsing allergic to penicillin when she was a child. With first dose of amoxicillin she did not develop any side effects. Today she has not been able to keep anything down because of recurrent emesis she was brought to the ER in the ER she is persistently sinus tachycardic heart rate in 140s, extremely dehydrated and malnourished Review of Systems Const: Reports: chills and fatigue Eyes: Denies: change in vision ENMT: Denies: throat pain Card: Denies: chest pain Resp: Denies: dyspnea GI: Denies: coffee ground emesis : Denies: flank pain Musc: Denies: neck pain Skin/Breast: Denies: rash Neuro: Denies: headache(s) Psych: Reports: anxiety Endo: Denies: polyuria Johann/Lymph: Denies: easy bruising All/Imm: Denies: urticaria Medications/Allergies Home Medications Medication Instructions Recorded Confirmed Last Taken Type amoxicillin 500 mg tablet 500 mg PO BID 01/31/22 01/31/22 01/30/22 History Allergies Allergy/AdvReac Type Severity Reaction Status Date / Time sulfamethoxazole Allergy Intermediate ADR-Itching Verified 01/31/22 11:15 [From Bactrim] trimethoprim [From Bactrim] Allergy Intermediate ADR-Itching Verified 01/31/22 11:15 Penicillins Allergy ALGY-Hives Verified 01/31/22 11:15 Sulfa (Sulfonamide Allergy ALGY-Hives Verified 01/31/22 11:15 Antibiotics) PFSH Acute PFSH: Medical History No pertinent family history Surgical History No pertinent past surgical history Family History Denies family history of CAD (coronary artery disease) Social History Smoking and tobacco status: never smoked Alcohol intake: never Substance/Drug Use: never Household members: family Housing: House Vitals/I&O/Wt Last Vital Signs Temp 99.8 F H 01/31/22 17:49 Pulse 141 H 01/31/22 18:00 Resp 22 H 01/31/22 18:00 BP 102/50 01/31/22 18:00 Pulse Ox 96 01/31/22 18:00 O2 Del Method 01/31/22 11:53 01/31/22 01/31/22 01/31/22 06:59 14:59 22:59 Intake Total 1000 / 1000 Balance 1000 / 1000 Weight last 48 hrs Weight 41.277 kg Physical Exam Narrative: Young female Malnourished Dehydrated Awake and alert S1, S2 no murmur appreciated No skin rash No tender lymphadenopathy anterior cervical chain, submandibular, posterior pharyngeal wall hyperemic I do not see any signs of epiglottitis or tonsillitis No drooling of saliva No headache No signs of meningitis Clinically very dehydrated Abdomen soft Doing well on room air Data 01/31/22 12:42 01/31/22 12:42 Micro: Microbiology 01/31/22 18:30 Blood Culture - Preliminary Blood SPECIMEN COLLECTED 01/31/22 18:20 Blood Culture - Preliminary Blood SPECIMEN COLLECTED A&P Assessment and plan (1) Sinus tachycardia: (2) Streptococcal pharyngitis: Plan Dehydration Recurrent emesis Drug screen negative test negative 4 days ago she was diagnosed with strep throat, taken doses of amoxicillin no skin rash or fever her eosinophil count is also not very high I do not suspect this is related to use of amoxicillin She ate pizza few hours before her symptoms yesterday It could be mild gastritis I will keep her on bland diet, I would use ceftriaxone for now, will request echo in the morning Requested D-dimer I will give her another 2 L bolus and start normal saline at 75 mill per hour Her leukocytosis could be stress leukemoid reaction to dehydration and vomiting She is afebrile, tachycardic, lactic acid is normal, no endorgan damage Hydrate for next 24 hours Full code Advance diet as tolerated Antiemetics for nausea CT abdomen pelvis unremarkable No signs of meningitis, epiglottitis or tonsillitis Attestations Medical Necessity Statement*: Anticipating discharge within 48 hours Time Spent in Patient Care: 40 Coding Level of Care Code Acute Identification And Records Commander for g Fwd Diagnoses Sinus tachycardia R00.0 Streptococcal pharyngitis J02.0
[2022-01-31] MEDS: sodium chloride 0.9% 1,000 ML 75 ML IV (19:50)
[2022-01-31] MEDS: enoxaparin 40 mg/0.4 mL Syringe SUBCUT (19:50)
[2022-01-31 19:56] LABS: Thyroid Stimulating Hormone 0.55 uIU/mL (0.27-4.20)
[2022-01-31 20:21] LABS: Procalcitonin 0.28 ng/mL (0-0.5)
[2022-01-31] MEDS: cefTRIAXone 1,000 MG in sodium chloride 0.9% (plus) 50 ML 100 MG IV (21:08)
--- NOTE | 2022-01-31 21:11 | PC.NURSE ---
ADMIT NOTE Pt received to room from the ER at 2049. Is alert and oriented. Pts mom is at bedside. Says that Ronda has special needs Ronda is alert and oriented. Denies any pain at present.. Abdomen is soft and nontender. Also denies any nausea. Mom says she was throwing up all night and this morning.Went to urgent care this morning. IV fluids infusing at 100ml/hr rate. IV Rocephin started. Telemetry placed and is showing ST with HR at 125. Mom says pt has never had a high HR history.
[2022-02-01] VITALS (9 sets, daily range): BP systolic 85–101; BP diastolic 51–64; PULSE 71–108; RESP 16–19; TEMP 36.3–36.6; O2SAT 95–99
[2022-02-01 05:52] LABS: Basophils % 0.4 %; Eosinophils % 0.2 %; Hematocrit 33.1 % (37.0-47.0); Hemoglobin 10.5 g/dL (11.5-15.3); Lymphocytes # 1.1 10^3/uL (1.5-6.5); Lymphocytes % 22.2 %; Mean Corpuscular HGB Conc 31.7 g/dL (30.0-36.0); Mean Corpuscular Hemoglobin 28.3 pg (28.0-34.0); Mean Corpuscular Volume 89.2 fl (81-99); Mean Platelet Volume 9.3 fL (7.4-10.4); Monocytes # 0.5 10^3/uL (0.2-0.9); Monocytes % 10.8 %; Neutrophils # 3.26 10^3/uL (1.8-8.0); Neutrophils % 66.2 %; Nucleated Red Blood Cells % 0 %; Platelet Count 229 10^3/cmm (130-400); Red Blood Count 3.71 10^6/uL (4.1-5.3); Red Cell Distribution Width 13.1 % (12.1-15.1); White Blood Count 4.9 10^3/uL (4.5-13.0)
--- NOTE | 2022-02-01 06:00 | USCV_ITS ---
Ronda Davidson Age: 21 Gender: F : 2000 Exam Date: 02/01/2022 12:13 Ordering Phys: Laura Means MD Technologist: SONIA Exam Location: [facility] – [place] Indication: strep throat BP: 85 / 52 HR: 87 Rhythm: Sinus Technical Quality: Adequate MEASUREMENTS (Male / Female) Normal Values 2D ECHO LV Diastolic Diameter PLAX 4.5 cm 4.2 - 5.9 / 3.9 - 5.3 cm LV Systolic Diameter PLAX 3.0 cm IVS Diastolic Thickness 0.3 cm 0.6 - 1.0 / 0.6 - 0.9 cm IVS Systolic Thickness 0.6 cm LVPW Diastolic Thickness 0.4 cm 0.6 - 1.0 / 0.6 - 0.9 cm LVPW Systolic Thickness 0.5 cm LVOT Diameter 2.0 cm LV Ejection Fraction 2D Teich 63.4 % LV Ejection Fraction MOD 2C 53.7 % LV Ejection Fraction 2C AL 55.3 % LA Diameter 1.6 cm IVC Diameter 1.2 cm M-MODE Aortic Annulus Diameter 2.6 cm LA Ao Ratio MM 0.7 MV E Point Septal Separation 0.5 cm DOPPLER AV Peak Velocity 103.0 cm/s LVOT Peak Velocity 81.0 cm/s AV Area Cont Eq vti 2.8 cm squared AV Area Cont Eq pk 2.5 cm squared MV Area PHT 5.0 cm squared Mitral E to A Ratio 2.3 MV E' Velocity 62.0 cm/s Mitral E to MV E' Ratio 4.8 Mitral E to LV E' Lateral Ratio 4.4 Mitral E to LV E' Septal Ratio 5.3 PV Peak Velocity 111.0 cm/s FINDINGS Left Ventricle Left ankle is normal in size. LV systolic function is normal with EF of 55 to 60%. No regional wall motion abnormalities are seen. Right Ventricle Normal in size and function Right Atrium Normal in size Left Atrium Normal in size Mitral Valve Structurally normal mitral valve. No significant stenosis or regurgitation is seen. Aortic Valve Normal aortic valve. No significant stenosis or regurgitation. Tricuspid Valve Trace tricuspid regurgitation. Insufficient TR jet to calculate RVSP. Pulmonic Valve Not well visualized Pericardium Normal Aorta Normal in size IVC Appears to be normal CONCLUSIONS LV systolic function is normal with EF of 55 to 60%. No significant valvular heart disease. No comparison studies are available Julio Cesar Chew MD (Electronically Signed) Final Date: 02 February 2022 10:19 S
[2022-02-01] MEDS: sodium chloride 0.9% 1,000 ML 75 ML IV ×2 (06:18→16:32)
[2022-02-01 06:20] LABS: Alanine Aminotransferase 9 U/L (0-33); Albumin Level 2.7 g/dL (3.5-5.2); Alkaline Phosphatase 51 U/L (35-105); Anion Gap 8.4 (5-19); Aspartate Amino Transferase 12 U/L (0-32); Blood Urea Nitrogen 7 mg/dL (6-20); C Reactive Protein 16.9 mg/L (0.0-4.9); Calcium 7.3 mg/dL (8.5-10.5); Carbon Dioxide 23 mmol/L (22-29); Chloride 108 mmol/L (98-107); Globulin 2.6 g/dL (1.3-4.6); Glomerular Filtration Rate 203.5 mL/min (90-130); Glucose 90 mg/dL (65-115); Magnesium 2.1 mg/dL (1.7-2.3); Osmolality Calculated 280 mOsm/kg (285-295); Phosphorus 3.6 mg/dL (2.5-4.5); Potassium 3.4 mmol/L (3.5-5.1); Sodium 136 mmol/L (136-145); Total Bilirubin 0.2 mg/dL (0.15-1.2); Total Protein 5.3 g/dL (6.6-8.7)
[2022-02-01] MEDS: ascorbic acid 500 mg Tablet PO (09:47)
[2022-02-01] MEDS: acetaminophen 500 mg Tablet PO (09:47)
[2022-02-01] MEDS: cefTRIAXone 1,000 MG in sodium chloride 0.9% (plus) 50 ML 100 MG IV (09:48)
--- NOTE | 2022-02-01 19:41 | PM.PN ---
Subjective Subjective: She is overall doing better. Appetite is at the best but this is not new for her. Visited by family. She denies any lightheadedness or dizziness. Denies any further vomiting. Denies diarrhea. Denies any pain on swallowing. Vitals/I&O/Wt Last Vital Signs Temp 97.8 F 02/01/22 15:34 Pulse 71 02/01/22 18:23 Resp 16 02/01/22 18:23 BP 88/55 02/01/22 15:34 Pulse Ox 95 02/01/22 18:23 O2 Del Method 02/01/22 18:23 02/01/22 02/01/22 02/01/22 06:59 14:59 22:59 Intake Total 905 / 3075 290 / 290 1007.5 / 1297.5 Output Total 500 / 500 600 / 1100 Balance 905 / 3075 -210 / -210 407.5 / 197.5 Weight last 48 hrs Weight 41.277 kg Weight 41.277 kg Physical Exam Const: COMMON NORMALS: patient oriented x3 and alert GENERAL APPEARANCE: cooperative ORIENTATION/CONSCIOUSNESS: Yes awake HENMT: COMMON NORMALS: oropharynx normal OTHER: Mild tonsillar enlargement bilaterally without any exudate. No erythema. Neck/C-Spine: COMMON NORMALS: no JVD Resp: COMMON NORMALS: normal respiratory effort and clear to auscultation bilaterally AUSCULTATION: clear to auscultation bilaterally Cardio: COMMON NORMALS: no JVD, regular rhythm, S1 normal heart sound present, S2 normal heart sound present and No murmurs present (Cardio) RHYTHM: regular rhythm HEART SOUNDS: S1 normal heart sound present and S2 normal heart sound present GI: COMMON NORMALS: Normal to inspection, nondistended, normoactive bowel sounds present, Soft to palpation and non-tender PALPATION: Yes Soft to palpation Extremity: COMMON NORMALS: no joint enlargement and no pedal edema Neuro: COMMON NORMALS: patient oriented x3 and moves all extremities SENSORIUM/ORIENTATION: Yes alert Skin: COMMON NORMALS: no rashes or lesions noted GENERAL SKIN EXAM: no rashes or lesions noted Data 02/01/22 04:57 02/01/22 04:57 Micro: Microbiology 01/31/22 18:30 Blood Culture - Preliminary Blood NEGATIVE TO DATE 01/31/22 18:20 Blood Culture - Preliminary Blood NEGATIVE TO DATE A&P Assessment and plan (1) Sinus tachycardia: Improving. Suspect respiratory dehydration following vomiting. Improving with rehydration. Leukocytosis appears resolved. Blood pressure soft, 88/55. For now continue IV hydration. No PE on CTA. Echocardiogram performed, pending interpretation. Drug screen negative test negative 4 days ago she was diagnosed with strep throat, taken doses of amoxicillin no skin rash or fever her eosinophil count is also not very high I do not suspect this is related to use of amoxicillin (2) Streptococcal pharyngitis: Continue ceftriaxone. Consideration of whether nausea and vomiting may have been caused by amoxicillin, although it is not common. (3) Dehydration: Improving, although BP soft. Tachycardia resolved. Continue IV hydration. Plan Recurrent emesis: resolved Full code Advance diet as tolerated Antiemetics for nausea CT abdomen pelvis unremarkable No signs of meningitis, epiglottitis or tonsillitis Attestations Medical Necessity Statement*: Additional hydration, monitoring under observation in the hospital due to soft blood pressure. Possible discharge tomorrow. 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
[2022-02-01] MEDS: enoxaparin 40 mg/0.4 mL Syringe SUBCUT (20:48)
[2022-02-02] MEDS: sodium chloride 0.9% 1,000 ML 75 ML IV (01:59)
[2022-02-02 04:00] VITALS: BP 98/62; PULSE 104; RESP 16; TEMP 36.4; O2SAT 98
[2022-02-02 06:10] LABS: Basophils % 0.4 %; Eosinophils % 0.9 %; Hematocrit 33.3 % (37.0-47.0); Hemoglobin 10.8 g/dL (11.5-15.3); Lymphocytes # 1.1 10^3/uL (1.5-6.5); Lymphocytes % 22.9 %; Mean Corpuscular HGB Conc 32.4 g/dL (30.0-36.0); Mean Corpuscular Hemoglobin 28.6 pg (28.0-34.0); Mean Corpuscular Volume 88.3 fl (81-99); Mean Platelet Volume 9.1 fL (7.4-10.4); Monocytes # 0.5 10^3/uL (0.2-0.9); Monocytes % 10.9 %; Neutrophils # 3.01 10^3/uL (1.8-8.0); Neutrophils % 64.5 %; Nucleated Red Blood Cells % 0 %; Platelet Count 210 10^3/cmm (130-400); Red Blood Count 3.77 10^6/uL (4.1-5.3); Red Cell Distribution Width 12.8 % (12.1-15.1); White Blood Count 4.7 10^3/uL (4.5-13.0)
[2022-02-02 06:31] LABS: Alanine Aminotransferase 11 U/L (0-33); Alkaline Phosphatase 51 U/L (35-105); Anion Gap 10.6 (5-19); Aspartate Amino Transferase 16 U/L (0-32); Blood Urea Nitrogen 5 mg/dL (6-20); Calcium 7.4 mg/dL (8.5-10.5); Carbon Dioxide 23 mmol/L (22-29); Chloride 106 mmol/L (98-107); Globulin 2.5 g/dL (1.3-4.6); Glomerular Filtration Rate 283.6 mL/min (90-130); Glucose 95 mg/dL (65-115); Osmolality Calculated 279 mOsm/kg (285-295); Potassium 3.6 mmol/L (3.5-5.1); Sodium 136 mmol/L (136-145); Total Bilirubin 0.2 mg/dL (0.15-1.2); Total Protein 5.5 g/dL (6.6-8.7)
[2022-02-02 07:23] VITALS: BP 99/62; PULSE 92; RESP 15; TEMP 36.6; O2SAT 98
[2022-02-02 08:00] VITALS: PULSE 105; RESP 16; O2SAT 99
[2022-02-02] MEDS: cefTRIAXone 1,000 MG in sodium chloride 0.9% (plus) 50 ML 100 MG IV (09:30)
[2022-02-02] MEDS: ascorbic acid 500 mg Tablet PO (09:30)
--- NOTE | 2022-02-02 10:34 | P.DS_ITS ---
Discharge Providers Date of Admission: 01/31/22 19:42 Date of Discharge: February 02, 2022 Attending Provider at Admission: Elan Garcia MD Attending Provider at Discharge: Campos Blackmon Diagnoses at Discharge Discharge Diagnosis (1) Sinus tachycardia: Status: Acute (2) Streptococcal pharyngitis: Status: Acute (3) Dehydration: Status: Acute Reason for Visit Reason for Visit: came from urgent care, possible appendicitis Hospital Course Hospital Course 21-year-old lady with reported history of intellectual disability, recently diagnosed with strep throat and had taken a dose of amoxicillin, complained of right lower quadrant abdominal pain and having recurrent nausea and vomiting for a day, unable to keep down any food or drink. On presentation noted dehydrated with sinus tachycardia up to 140s. Afebrile. Initial leukocytosis 16.3. CT abdomen pelvis was performed. Appendix not well visualized, no evidence of acute appendicitis otherwise. Motion degrades some images in lower abdomen pelvis. Noted multicystic right ovary with largest cyst measuring 1.5 x 1.6 cm with peripheral enhancement, small mount of surrounding fluid, small amount of free fluid in the cul-de-sac. No other acute findings, tiny fat-containing umbilical hernia. No hydronephrosis in either kidney. Normal renal parenchymal enhancement. In the hospital she was switched over to IV ceftriaxone, received IV hydration, symptomatic management with antiemetics. Nausea and vomiting had resolved. With IV hydration sinus tachycardia had resolved as well. She reports she is feeling much better, feels like her usual self, wants to go home. Echocardiogram was obtained today in the hospital as well, was unremarkable. Discussed with her and her mother regarding suspected ruptured ovarian cyst likely causing her right lower quadrant pain, nausea and vomiting. In the absence amoxicillin contributed to nausea and vomiting, she switched to cefdinir to complete course of therapy. Please follow-up with her regarding postrecovery, possibility of post-COVID syndrome, as well as suspected ruptured cyst. Please reassess blood counts at next visit for anemia. Physical Exam Narrative: Accompanied by her mother. Const: COMMON NORMALS: patient oriented x3 and alert GENERAL APPEARANCE: cooperative ORIENTATION/CONSCIOUSNESS: Yes awake HENMT: COMMON NORMALS: oropharynx normal Neck/C-Spine: COMMON NORMALS: no JVD Resp: COMMON NORMALS: normal respiratory effort and clear to auscultation bilaterally AUSCULTATION: clear to auscultation bilaterally Cardio: COMMON NORMALS: no JVD, regular rhythm, S1 normal heart sound present, S2 normal heart sound present and No murmurs present (Cardio) RHYTHM: regular rhythm HEART SOUNDS: S1 normal heart sound present and S2 normal heart sound present GI: COMMON NORMALS: Normal to inspection, nondistended, normoactive bowel sounds present, Soft to palpation and non-tender PALPATION: Yes Soft to palpation Extremity: COMMON NORMALS: no joint enlargement and no pedal edema Neuro: COMMON NORMALS: patient oriented x3 and moves all extremities SENSORIUM/ORIENTATION: Yes alert Skin: COMMON NORMALS: no rashes or lesions noted GENERAL SKIN EXAM: no rashes or lesions noted Discharge Data Studies Completed and Pending Completed Studies During Hospitalization Category Date Time Status CT abdomen pelvis w con* [id number] Stat Cat Scan 01/31/22 13:46 Completed CTA chest [CT angio chest PE protcl [id number]] Stat Cat Scan 01/31/22 16:14 Completed CV. echo complete* [id number] Routine Ultrasound 02/01/22 06:00 Completed Pending at discharge Category Date Time Status Blood Culture Stat Lab 01/31/22 18:30 Results Complete Blood Count w/Auto AM LABS Lab 02/03/22 04:00 Ordered Complete Blood Count w/Auto AM LABS Lab 02/04/22 04:00 Ordered Comprehensive Metabolic Panel AM LABS Lab 02/03/22 04:00 Ordered Comprehensive Metabolic Panel AM LABS Lab 02/04/22 04:00 Ordered Radiology Impressions Abdomen/Pelvis CT 01/31/22 13:46 IMPRESSION: 1. Appendix not well visualized. No evidence of acute appendicitis. Motion degrades some images in the lower abdomen and pelvis. 2. Multicystic RIGHT ovary with the largest cyst measure 1.5 x 1.6cm with peripheral enhancement. Small amount of surrounding fluid. Small amount of free fluid in the cul-de-sac. 3. No other acute findings. 4. Tiny fat-containing umbilical hernia. 5. No hydronephrosis in either kidney. Normal renal parenchymal enhancement. Chest CTA 01/31/22 16:14 IMPRESSION: No acute findings. Laboratory Results WBC 4.7 10^3/uL (4.5-13.0) 02/02/22 05:45 RBC 3.77 10^6/uL (4.1-5.3) L 02/02/22 05:45 Hgb 10.8 g/dL (11.5-15.3) L 02/02/22 05:45 Hct 33.3 % (37.0-47.0) L 02/02/22 05:45 MCV 88.3 fl (81-99) 02/02/22 05:45 MCH 28.6 pg (28.0-34.0) 02/02/22 05:45 MCHC 32.4 g/dL (30.0-36.0) 02/02/22 05:45 RDW 12.8 % (12.1-15.1) 02/02/22 05:45 Plt Count 210 10^3/cmm (130-400) 02/02/22 05:45 MPV 9.1 fL (7.4-10.4) 02/02/22 05:45 Neut % (Auto) 64.5 % 02/02/22 05:45 Lymph % (Auto) 22.9 % 02/02/22 05:45 [place] % (Auto) 10.9 % 02/02/22 05:45 Eos % (Auto) 0.9 % 02/02/22 05:45 Baso % (Auto) 0.4 % 02/02/22 05:45 Neut # (Auto) 3.01 10^3/uL (1.8-8.0) 02/02/22 05:45 Lymph # (Auto) 1.1 10^3/uL (1.5-6.5) L 02/02/22 05:45 [place] # (Auto) 0.5 10^3/uL (0.2-0.9) 02/02/22 05:45 Eos # (Auto) 0.0 10^3/uL (0.0-0.8) 02/02/22 05:45 Baso # (Auto) 0.0 10^3/uL (0.0-0.1) 02/02/22 05:45 Nucleated RBC % (auto) 0 % 02/02/22 05:45 Nucleated RBCs # 0.0 /100WBC 02/02/22 05:45 Sodium 136 mmol/L (136-145) 02/02/22 05:45 Potassium 3.6 mmol/L (3.5-5.1) 02/02/22 05:45 Chloride 106 mmol/L (98-107) 02/02/22 05:45 Carbon Dioxide 23 mmol/L (22-29) 02/02/22 05:45 Anion Gap 10.6 (5-19) 02/02/22 05:45 BUN 5 mg/dL (6-20) L 02/02/22 05:45 Creatinine 0.3 mg/dL (0.5-0.9) L 02/02/22 05:45 GFR Calculation 283.6 mL/min (90-130) H 02/02/22 05:45 Glucose 95 mg/dL (65-115) 02/02/22 05:45 Calculated Osmolality 279 mOsm/kg (285-295) L 02/02/22 05:45 Lactic Acid 0.6 mmol/L (0.5-2.2) 01/31/22 17:45 Calcium 7.4 mg/dL (8.5-10.5) L 02/02/22 05:45 Phosphorus 3.6 mg/dL (2.5-4.5) 02/01/22 04:57 Magnesium 2.1 mg/dL (1.7-2.3) 02/01/22 04:57 Total Bilirubin 0.2 mg/dL (0.15-1.2) 02/02/22 05:45 AST 16 U/L (0-32) 02/02/22 05:45 ALT 11 U/L (0-33) 02/02/22 05:45 Alkaline Phosphatase 51 U/L (35-105) 02/02/22 05:45 C-Reactive Protein 16.9 mg/L (0.0-4.9) H 02/01/22 04:57 Total Protein 5.5 g/dL (6.6-8.7) L 02/02/22 05:45 Albumin 3.0 g/dL (3.5-5.2) L 02/02/22 05:45 Globulin 2.5 g/dL (1.3-4.6) 02/02/22 05:45 Lipase 14 U/L (13-60) 01/31/22 12:42 Procalcitonin 0.28 ng/mL (0-0.5) 01/31/22 12:42 TSH 0.55 uIU/mL (0.27-4.20) 01/31/22 12:42 Free T4 0.99 ng/dL (0.82-1.77) 01/31/22 12:42 HCG, Qual Negative (Negative) 01/31/22 12:42 Urine Color Yellow (Yellow) 01/31/22 13:14 Urine Appearance Clear (CLEAR) 01/31/22 13:14 Urine pH 7 (5-7) 01/31/22 13:14 Ur Specific [place] 1.010 (1.005-1.030) 01/31/22 13:14 Urine Protein Neg (Negative) 01/31/22 13:14 Urine Glucose (UA) Norm (Normal) 01/31/22 13:14 Urine Ketones Negative (Negative) 01/31/22 13:14 Urine Blood Neg (Negative) 01/31/22 13:14 Urine Nitrate Negative (Negative) 01/31/22 13:14 Urine Bilirubin Neg (Negative) 01/31/22 13:14 Urine Urobilinogen Norm mg/dL (Negative) 01/31/22 13:14 Ur Leukocyte Esterase Negative (Negative) 01/31/22 13:14 Urine Opiates Screen Negative ng/mL (Negative) 01/31/22 13:14 Ur Barbiturates Screen Negative ng/mL (Negative) 01/31/22 13:14 Ur Phencyclidine Scrn Negative ng/mL (Negative) 01/31/22 13:14 Ur Amphetamines Screen Negative ng/mL (Negative) 01/31/22 13:14 U Benzodiazepines Scrn Negative ng/mL (Negative) 01/31/22 13:14 Urine Cocaine Screen Negative ng/mL (Negative) 01/31/22 13:14 U Marijuana (THC) Screen Negative ng/mL (Negative) 01/31/22 13:14 Monoscreen Negative (Negative) 01/31/22 12:42 Influenza Type A Ag negative (Negative) 01/31/22 16:42 Influenza Type B Ag negative (Negative) 01/31/22 16:42 SARS-CoV-2 Ag (Rapid) Negative (Negative) 01/31/22 16:42 Vitals Last Vital Signs Temp 97.8 F 02/02/22 07:23 Pulse 105 H 02/02/22 08:00 Resp 16 02/02/22 08:00 BP 99/62 02/02/22 07:23 Pulse Ox 99 02/02/22 08:00 O2 Del Method 02/02/22 08:00 Discharge Plan Discharge Patient Disposition: Home Condition: Stable Prescriptions: New cefdinir 300 mg capsule 300 mg PO BID 3 Days Qty: 6 0RF Discontinued amoxicillin 500 mg Tablet 500 mg PO BID Discharge Orders: Discharge Order (Routine); Ordered 02/02/22 Ordered By: Campos Blackmon Referrals: Wilmer Mathews DO [Physician] - 4-7 days Discharge Diet: Advance as tolerated and Regular Discharge Activity: Increase activity as tolerated Patient Instructions: Cefdinir (By mouth) Activity Restrictions/Additional Instructions: Complete antibiotic course for streptococcal pharyngitis. Follow-up with primary provider for reassessment. Discuss with your primary doctor, consider referral to gynecology for evaluation of multicystic right ovary with largest cyst measuring 1.5 x 1.6 cm, peripheral enhancement, small mount of surrounding fluid, small amount of fluid in the pelvis seen on abdominal CAT scan, after possible cyst rupture. This may have contributed to the nausea and vomiting as may have amoxicillin. Have your primary doctor follow-up blood count for anemia. Keep hydrated. Avoid NSAIDs like ibuprofen, Aleve, etc. Please note her echocardiogram was obtained but has not been read yet. Please follow-up with with your primary doctor regarding results. You may be contacted about them. Return to the hospital in case you develop fever, abdominal pain, recurrence of persistent nausea and vomiting, inability to tolerate oral intake or any other concerning symptoms. Discharge Attestations Time Spent in Discharge Care*: greater than 30 min Quality Metrics Clinical Quality Measures [ No reported AMI, CVA or VTE this stay] Coding Level of Care Code Acute Chg [facility] note Diagnoses Sinus tachycardia R00.0 Streptococcal pharyngitis J02.0 Dehydration E86.0
[2022-02-02 11:30] VITALS: BP 97/66; PULSE 80; RESP 15; TEMP 36.6; O2SAT 98
[2022-02-02 12:12] VITALS: BP 100/66; PULSE 80; RESP 15; TEMP 36.6; O2SAT 98
== END 2022-02-02 12:14 | disposition home or self-care (01) ==
LOC: ER 19:45 → MEDSURG 19:57
PROVIDERS: Internal Medicine; Physician Assistant; Admitting Provider Internal Medicine; Emergency Provider Family Medicine; Visit Provider Internal Medicine
DX: R00.0 Tachycardia, unspecified (principal); J02.0 Streptococcal pharyngitis; E86.0 Dehydration
CPT/HCPCS: 36415; 71275; 74177; 80048; 80053; 80306; 81003; 83605; 83690; 83735; 84100; 84145; 84439; 84443; 84703; 85025; 86140; 86308; 87040; 87426; 87804; 93005; 93306; 96365; 96366; 96372; 96375; 99285; G0378; J0696; J1650; J2405; J3411; J7030; Q9967

== ENCOUNTER 2022-02-15 12:28 | Emergency (ER) | payer MEDICAID, SELFPAY ==
[2022-02-15 12:33] VITALS: BP 98/63; PULSE 111; RESP 22; TEMP 36.5; O2SAT 97
--- NOTE | 2022-02-15 12:47 | ED_ITS ---
HPI - Abdominal Pain General: Chief Complaint: Abdominal Pain Stated Complaint: abd pain Time Seen by Provider: 02/15/22 12:45 History of Present Illness: 21-year-old female comes in today with generalized abdominal pain. Patient was reported to have had nausea with episode of diarrh ea this morning and continued abdominal discomfort. Patient had had a similar episode about 2 weeks ago and was evaluated in the emergency room and kept in the hospital for dehydration. Patient appears nontoxic at this time. Patient appears in moderate pain. Associated Symptoms: Reports diarrhea Review of Systems GI: Reports: abdominal pain and diarrhea PFS ED PFSH: Medical History No pertinent family history Surgical History No pertinent past surgical history Family History Denies family history of CAD (coronary artery disease) Social History Smoking and tobacco status: never smoked Alcohol intake: never Household members: family Housing: House Physical Exam Const: COMMON NORMALS: alert HENMT: COMMON NORMALS: normocephalic HEAD & SCALP: normocephalic Neck/C-Spine: COMMON NORMALS: full ROM Resp: COMMON NORMALS: normal respiratory effort and clear to auscultation bilaterally AUSCULTATION: clear to auscultation bilaterally Cardio: COMMON NORMALS: regular rate RATE: regular rate GI: AUSCULTATION: Yes normoactive bowel sounds PALPATION: Yes Tenderness to palpation present (GI) (Generalized) : COMMON NORMALS: Yes no CVA tenderness BLADDER/KIDNEY EXAM: Yes no CVA tenderness Back/Pelvis: COMMON NORMALS: no CVA tenderness Extremity: COMMON NORMALS: normal to inspection Neuro: SENSORIUM/ORIENTATION: Yes alert Skin: COMMON NORMALS: turgor normal GENERAL SKIN EXAM: turgor normal Course Vital Signs: Vital signs: Vital Signs Temperature 97.7 F 02/15/22 12:33 Pulse Rate 90 02/15/22 15:11 Respiratory Rate 16 02/15/22 15:11 Blood Pressure 107/75 02/15/22 15:11 Pulse Oximetry 97 02/15/22 15:11 Oxygen Delivery Me thod 02/15/22 15:11 MDM - Abdominal Pain Medical Decision Making Patient comes in today for complaints of moderate abdominal pain with diarrhea. On exam patient has generalized abdominal tenderness. No CVA tenderness is noted. Respirations are even lungs are clear to auscultation. No edema is noted in the extremities. Skin is warm and dry. Vital signs are normal except for some mild elevation in pulse at 111. Differential diagnosis includes appendicitis, gastroenteritis, enteritis/colitis, ovarian torsion, ovarian cyst. Patient had a prior CT scan which was unremarkable except for ovarian cyst about 10 days ago. Laboratory values today were unremarkable. Ultrasound of the pelvis and appendix showed no sign of appendicitis or sign of ovarian torsion. Patient was treated with 500 mL of lactated Ringer's. Patient had resolution of pain and was able to orally tolerate food and drink. Patient had been ordered some morphine 2 mg and Zofran 4 mg but they were not given as patient felt better with IV fluids. Reviewed exam with patient and mother with recommendations for monitoring and need for return to the ER, suspect patient had a mild viral gastroenteritis. Lab Data 02/15/22 14:08 02/15/22 14:08 Labs/Radiology: Radiology Impressions Appendix Ultrasound 02/15/22 12:54 IMPRESSION: Exam targeted to the area of concern in the right lower quadrant only. Probable identification of the normal appendix. No obvious regional inflammatory structure or large fluid collection. However follow-up assessment such as CT should be obtained if symptoms persist. Laboratory Results WBC 7.4 10^3/uL (4.5-13.0) 02/15/22 14:08 RBC 4.37 10^6/uL (4.1-5.3) 02/15/22 14:08 Hgb 12.4 g/dL (11.5-15.3) 02/15/22 14:08 Hct 37.2 % (37.0-47.0) 02/15/22 14:08 MCV 85.1 fl (81-99) 02/15/22 14:08 MCH 28.4 pg (28.0-34.0) 02/15/22 14:08 MCHC 33.3 g/dL (30.0-36.0) 02/15/22 14:08 RDW 11.9 % (12.1-15.1) L 02/15/22 14:08 Plt Count 288 10^3/cmm (130-400) 02/15/22 14:08 MPV 9.0 fL (7.4-10.4) 02/15/22 14:08 Neut % (Auto) 63.9 % 02/15/22 14:08 Lymph % (Auto) 27.4 % 02/15/22 14:08 [place] % (Auto) 7.7 % 02/15/22 14:08 Eos % (Auto) 0.1 % 02/15/22 14:08 Baso % (Auto) 0.5 % 02/15/22 14:08 Neut # (Auto) 4.69 10^3/uL (1.8-8.0) 02/15/22 14:08 Lymph # (Auto) 2.0 10^3/uL (1.5-6.5) 02/15/22 14:08 [place] # (Auto) 0.6 10^3/uL (0.2-0.9) 02/15/22 14:08 Eos # (Auto) 0.0 10^3/uL (0.0-0.8) 02/15/22 14:08 Baso # (Auto) 0.0 10^3/uL (0.0-0.1) 02/15/22 14:08 Nucleated RBC % (auto) 0 % 02/15/22 14:08 Nucleated RBCs # 0.0 /100WBC 02/15/22 14:08 Sodium 139 mmol/L (136-145) 02/15/22 14:08 Potassium 3.8 mmol/L (3.5-5.1) 02/15/22 14:08 Chloride 105 mmol/L (98-107) 02/15/22 14:08 Carbon Dioxide 22 mmol/L (22-29) 02/15/22 14:08 Anion Gap 15.8 (5-19) 02/15/22 14:08 BUN 13 mg/dL (6-20) 02/15/22 14:08 Creatinine 0.5 mg/dL (0.5-0.9) 02/15/22 14:08 GFR Calculation 157.3 mL/min (90-130) H 02/15/22 14:08 Glucose 90 mg/dL (65-115) 02/15/22 14:08 Calculated Osmolality 288 mOsm/kg (285-295) 02/15/22 14:08 Calcium 8.9 mg/dL (8.5-10.5) 02/15/22 14:08 Total Bilirubin 0.3 mg/dL (0.15-1.2) 02/15/22 14:08 AST 23 U/L (0-32) 02/15/22 14:08 ALT 22 U/L (0-33) 02/15/22 14:08 Alkaline Phosphatase 66 U/L (35-105) 02/15/22 14:08 Total Protein 7.3 g/dL (6.6-8.7) 02/15/22 14:08 Albumin 4.4 g/dL (3.5-5.2) 02/15/22 14:08 Globulin 2.9 g/dL (1.3-4.6) 02/15/22 14:08 Lipase 25 U/L (13-60) 02/15/22 14:08 HCG, Qual Negative (Negative) 02/15/22 14:20 Urine Color Yellow (Yellow) 02/15/22 14:20 Urine Appearance Clear (CLEAR) 02/15/22 14:20 Urine pH 7 (5-7) 02/15/22 14:20 Ur Specific [place] 1.010 (1.005-1.030) 02/15/22 14:20 Urine Protein Neg (Negative) 02/15/22 14:20 Urine Glucose (UA) Norm (Normal) 02/15/22 14:20 Urine Ketones Negative (Negative) 02/15/22 14:20 Urine Blood Neg (Negative) 02/15/22 14:20 Urine Nitrate Negative (Negative) 02/15/22 14:20 Urine Bilirubin Neg (Negative) 02/15/22 14:20 Urine Urobilinogen Norm mg/dL (Negative) 02/15/22 14:20 Ur Leukocyte Esterase Negative (Negative) 02/15/22 14:20 Discharge Plan Discharge Patient Disposition: Home Clinical Impression: Gastroenteritis Abdominal pain Qualifiers: Abdominal location: generalized Qualified Code(s): R10.84 - Generalized abdominal pain Condition: Stable Discharge Orders: Discharge ED (Routine); Ordered 02/15/22 Ordered By: Rivera Livingston Referrals: Wilmer Mathews DO [Primary Care Provider] - Discharge Diet: Advance as tolerated Discharge Activity: Resume usual activity Patient Instructions: Abdominal Pain (ED) Activity Restrictions/Additional Instructions: Home and rest. Continue drinking plenty of fluids. Increase diet as tolerated. Follow-up with primary care in 3 to 5 days for recheck. Return to ED for high fever greater than 100.4, inability to hold fluids down, or blood in vomit or stool. Coding Level of Care Code ED Grid Operator for Wanda Coleman
--- NOTE | 2022-02-15 12:54 | USR_ITS ---
PROCEDURE INFORMATION: Exam: US Abdomen, Limited; Appendix Exam date and time: 02/15/2022 2:45 PM Age: 21 years old Clinical indication: Abdominal pain; Tenderness; Right lower quadrant (rlq); Additional info: Abd pain TECHNIQUE: Imaging protocol: Real time ultrasound of the abdomen with image documentation. Limited exam focused on the appendix. COMPARISON: CT abdomen pelvis w con* [id number] 01/31/2022 1:53 PM FINDINGS: Appendix: Limited ultrasound images were submitted using a linear transducer, targeting the area of pain in the right lower quadrant. No enlarged/inflammatory structure or large fluid collection is seen in the area of concern. A small blind ending tubular structure was notified by the on-site technologist measuring up to 2-3 mm in diameter, probably representing the normal appendix, image number [id number]. It should be noted that ultrasonography may not be sensitive in some cases of acute appendicitis. Clinical correlation such as Feng score and follow-up are recommended. Additional imaging using C.T. examination may be obtained if clinically indicated. US/US appendix [id number] IMPRESSION: Exam targeted to the area of concern in the right lower quadrant only. Probable identification of the normal appendix. No obvious regional inflammatory structure or large fluid collection. However follow-up assessment such as CT should be obtained if symptoms persist.
--- NOTE | 2022-02-15 12:54 | USR_ITS ---
NOTE: Report was unsigned for reason: Order was edited. Original Signature date and time was: 02/15/2022 [id number] PROCEDURE INFORMATION: Exam: US Pelvis Complete, Transabdominal and US Duplex Artery or Vein, Ovaries, Limited Exam date and time: 02/15/2022 3:06 PM Age: 21 years old Clinical indication: Pelvic pain; Additional info: HX ovarian cyst TECHNIQUE: Imaging protocol: Real-time transabdominal pelvic ultrasound with image documentation. Real-time duplex ultrasound scan of the arterial or venous flow of the ovaries with B-mode, color Doppler flow and spectral waveform analysis. Complete Pelvis, Limited Duplex. Duplex exam was performed to evaluate for torsion and other vascular conditions. COMPARISON: CT abdomen pelvis w con* [id number] 01/31/2022 1:53 PM FINDINGS: Uterus: The anteverted uterus measures about 7.1 x 2.1 x 5.1 cm. Suboptimally visualized endometrium measuring 2 in thickness with no large polypoid mass or significant fluid/debris. No large uterine myoma or obvious imaging signs of adenomyosis. Cervix: Suboptimally visualized cervix which otherwise appears grossly unremarkable. Right ovary/adnexa: Right ovary measures 4.1 x 2 by 3.5 cm, containing a few tiny cysts/follicles, the largest measuring 13 x 12 by 10 mm, probably representing a functional/dominant follicle.. A few tiny simple follicles are seen bilaterally. No suspicious adnexal region masses or ovarian stromal edema on either side. There is flow in both ovarian parenchyma demonstrating normal spectral waveforms. Left ovary/adnexa: Multiple transabdominal pelvic ultrasound images were obtained including duplex imaging due to pain and to exclude ovarian torsion. Details are somewhat limited due to lack of endovaginal imaging. Left ovary measures 2.8 x 1.4 by 2.9 cm containing a few tiny cysts/follicles.. Intraperitoneal space: No significant free pelvic fluid. Urinary bladder: Urinary bladder is grossly unremarkable. [facility] US/US pelvic complete* [id number] IMPRESSION: 1. No acute abnormalities are demonstrated. Somewhat limited details due to lack of endovaginal imaging. 2. No suspicious adnexal region masses or torsion. Tiny bilateral ovarian cysts/follicles, likely benign/physiologic.
[2022-02-15 14:03] VITALS: BP 99/56; PULSE 89; RESP 16; O2SAT 97
[2022-02-15 14:22] LABS: Basophils % 0.5 %; Eosinophils % 0.1 %; Hematocrit 37.2 % (37.0-47.0); Hemoglobin 12.4 g/dL (11.5-15.3); Lymphocytes % 27.4 %; Mean Corpuscular HGB Conc 33.3 g/dL (30.0-36.0); Mean Corpuscular Hemoglobin 28.4 pg (28.0-34.0); Mean Corpuscular Volume 85.1 fl (81-99); Monocytes # 0.6 10^3/uL (0.2-0.9); Monocytes % 7.7 %; Neutrophils # 4.69 10^3/uL (1.8-8.0); Neutrophils % 63.9 %; Nucleated Red Blood Cells % 0 %; Platelet Count 288 10^3/cmm (130-400); Red Blood Count 4.37 10^6/uL (4.1-5.3); Red Cell Distribution Width 11.9 % (12.1-15.1); White Blood Count 7.4 10^3/uL (4.5-13.0)
[2022-02-15 14:29] LABS: Add Urine Microscopic? NO; Charge for UA Resulting for Rev
[2022-02-15 14:39] LABS: Alanine Aminotransferase 22 U/L (0-33); Albumin Level 4.4 g/dL (3.5-5.2); Alkaline Phosphatase 66 U/L (35-105); Anion Gap 15.8 (5-19); Aspartate Amino Transferase 23 U/L (0-32); Blood Urea Nitrogen 13 mg/dL (6-20); Calcium 8.9 mg/dL (8.5-10.5); Carbon Dioxide 22 mmol/L (22-29); Chloride 105 mmol/L (98-107); Globulin 2.9 g/dL (1.3-4.6); Glomerular Filtration Rate 157.3 mL/min (90-130); Glucose 90 mg/dL (65-115); Lipase 25 U/L (13-60); Osmolality Calculated 288 mOsm/kg (285-295); Potassium 3.8 mmol/L (3.5-5.1); Sodium 139 mmol/L (136-145); Total Bilirubin 0.3 mg/dL (0.15-1.2); Total Protein 7.3 g/dL (6.6-8.7)
[2022-02-15 14:41] LABS: Bilirubin Urine Neg (Negative); Blood Urine Neg (Negative); Glucose Urine UA Norm (Normal); HCG Qualitative Urine. Negative (Negative); Ketones Urine Negative (Negative); Leukocyte Esterase Urine Negative (Negative); Nitrate Urine Negative (Negative); Protein Urine Neg (Negative); Urine Appearance Clear (CLEAR); Urine Color Yellow (Yellow); Urobilinogen Urine Norm (Negative); pH Urine 7 (5-7)
[2022-02-15] MEDS: lactated ringers 500 ML 999 ML IV (15:10)
[2022-02-15 15:11] VITALS: BP 107/75; PULSE 90; RESP 16; O2SAT 97
[2022-02-15 18:28] VITALS: BP 95/55; PULSE 92; RESP 16; O2SAT 98
[2022-02-15 18:31] VITALS: BP 95/55; PULSE 92; RESP 16; O2SAT 98
== END 2022-02-15 18:30 | disposition home or self-care (01) ==
PROVIDERS: Emergency Medicine; Emergency Provider Nurse Practitioner Family; PCP Family Medicine
DX: K52.9 Noninfective gastroenteritis and colitis, unspecified (principal); R10.84 Generalized abdominal pain
CPT/HCPCS: 76705; 76856; 76857; 80053; 81003; 81025; 83690; 85025; 96360; 99285; J7120

== ENCOUNTER 2022-05-09 19:48 | Emergency (ER) | payer MEDICAID, SELFPAY ==
[2022-05-09 19:56] VITALS: BP 137/85; PULSE 111; RESP 16; O2SAT 95; BMI 19.2
--- NOTE | 2022-05-09 19:59 | W.ED.PSYCHS ---
HPI - Psych General: Chief Complaint: Psychiatric Symptoms Stated Complaint: MHE Time Seen by Provider: 05/09/22 19:51 Source: EMS Mode of arrival: EMS Limitations: no limitations History of Present Illness: 21-year-old female history of autism she states that her family had taken her phone away she was not able to text her boyfriend she became extremely anxious she had no suicidal homicidal thoughts she is brought in by ambulance she has her phone now she states she feels much improved she is cooperative not angry not suicidal not homicidal Review of Systems Const: Denies: fever(s), chills, body aches or change in appetite Eyes: Denies: blurry vision or eye discomfort ENMT: Denies: throat pain or dental pain Card: Denies: chest pain Resp: Denies: dyspnea GI: Denies: abdominal pain, nausea, vomiting or diarrhea : Denies: dysuria Musc: Denies: neck pain or back pain Skin/Breast: Denies: rash Neuro: Denies: headache(s) Psych: Reports: anxiety Johann/Lymph: Denies: easy bruising All/Imm: Denies: urticaria PFSH ED PFSH: Medical History No pertinent family history Psychiatric care Surgical History No pertinent past surgical history Family History Denies family history of CAD (coronary artery disease) Social History Smoking and tobacco status: never smoked Alcohol intake: never Household members: family Housing: House Physical Exam Const: COMMON NORMALS: no acute distress, patient oriented x3 and healthy appearing HENMT: COMMON NORMALS: normocephalic and atraumatic HEAD & SCALP: normocephalic and atraumatic Eye: COMMON NORMALS: Equal, round and reactive pupils present and EOMs intact bilaterally PUPIL: Yes Equal, round and reactive pupils present Neck/C-Spine: COMMON NORMALS: full ROM and supple Chest: COMMONS NORMALS: normal inspection of the chest and normal palpation of entire chest wall Resp: COMMON NORMALS: normal respiratory effort, No retractions, No use of accessory muscles and clear to auscultation bilaterally AUSCULTATION: clear to auscultation bilaterally Cardio: COMMON NORMALS: regular rate, regular rhythm and No murmurs present (Cardio) RATE: regular rate RHYTHM: regular rhythm GI: COMMON NORMALS: Normal to inspection, nondistended, normoactive bowel sounds present, Soft to palpation, non-tender and no masses PALPATION: Yes Soft to palpation Extremity: COMMON NORMALS: normal to inspection and full ROM Neuro: COMMON NORMALS: patient oriented x3, moves all extremities and no focal motor deficits Psych: COMMON NORMALS: mental status grossly normal, Normal thought process present and cooperative THOUGHT PROCESS: Normal thought process present Skin: COMMON NORMALS: no rashes or lesions noted and no wounds GENERAL SKIN EXAM: no rashes or lesions noted MDM - Psych Medical Decision Making Patient presents here with anxiety she is now calm and she has not found she is cooperative calm not suicidal homicidal she stable for discharge with her mother. Discharge Plan Discharge Patient Disposition: Home Clinical Impression: Anxiety Condition: Stable Discharge Orders: Discharge ED (Routine); Ordered 05/09/22 Ordered By: Severino Javed Referrals: Wilmer Mathews DO [Primary Care Provider] - 1-3 days Discharge Diet: Advance as tolerated Discharge Activity: Resume usual activity Patient Instructions: Anxiety (ED) Coding Level of Care Code ED Branch Customer Service Representative for Wanda Coleman
[2022-05-09] MEDS: LORazepam 1 mg Tablet PO (20:28)
== END 2022-05-09 20:48 | disposition home or self-care (01) ==
PROVIDERS: Emergency Provider Emergency Medicine; PCP Family Medicine
DX: F84.0 Autistic disorder (principal)
CPT/HCPCS: 99283

== ENCOUNTER 2022-05-27 13:00 | Emergency (ER) | payer MEDICAID, SELFPAY ==
[2022-05-27 13:28] VITALS: BP 107/72; PULSE 97; RESP 14; TEMP 36.4; O2SAT 98; BMI 16.2
--- NOTE | 2022-05-27 14:24 | XR_ITS ---
WS: [id number] Exam: XR chest 1V portable [id number] Date/Time of Exam: 05/27/2022 2:24 PM Reason For Exam: cough No priors. The lungs are clear and fully inflated. Normal cardiomediastinal silhouette and regional bony element s. A linear opaque density is noted along the right hilar region. Significance is undetermined. This may be an artifact within the clothing. A foreign body in the chest could also have this appearance. XR/XR chest 1V portable [id number] IMPRESSION: 1. No acute cardiopulmonary finding. 2. Linear opaque density seen in the right hilar region superimposes the cardia c silhouette. This may be an artifact however a foreign body in the chest can't be excluded.
--- NOTE | 2022-05-27 14:25 | ED_ITS ---
HPI - URI/Sore Throat General: Chief Complaint: COVID symptoms Stated Complaint: Cough Time Seen by Provider: 05/27/22 14:23 Source: patient and family Mode of arrival: ambulatory Limitations: no limitations History of Present Illness: Patient is a 21-year-old female presents to ED today along with her mother for complaints of a cough over the past 3 weeks. Mother states that patient sibling had similar symptoms but hers went away. She was seen once before for and told it was secondary to allergies and put her on cetirizine but this has not helped any of her symptoms. She does not complain of shortness of breath or difficulty breathing. She has had some mild rhinorrhea and a sore throat. No fevers. MD elicited complaint: fever, sore throat and rhinorrhea Onset (ago): week(s) Consistency: intermittent Severity: mild Description of mucous: clear Able to tolerate fluids by mouth: Yes Exacerbating factors: nothing Relieving factors: nothing Context: sick contacts (silbing with similar symptoms) Associated symptoms: Reports cough and rhinorrhea; Deny abdominal pain, chills, chest pain, diarrhea, ear or mastoid pain, fever(s), headache(s), nasal congestion, nausea, sinus pain or vomiting Treatments prior to arrival: other (allergy meds) Review of Systems Const: Denies: fever(s), chills, body aches, change in appetite, change in weight or fatigue Eyes: Denies: change in vision, blurry vision, photophobia, eye discomfort or eye discharge ENMT: Reports: throat pain, odynophagia and nasal discharge; Denies: enlarged tonsils, swelling of lips/tongue, oral sores, ear or mastoid pain, ear discharge, nasal congestion, post nasal drip or sinus pain Card: Denies: chest pain Resp: Reports: non-productive cough; Denies: dyspnea, productive cough, wheezing or hemoptysis GI: Denies: abdominal pain, nausea, vomiting or diarrhea Musc: Denies: neck pain Skin/Breast: Denies: rash Neuro: Denies: headache(s) All/Imm: Denies: facial swelling or seasonal rhinorrhea PFSH ED PFSH: Medical History No pertinent family history Psychiatric care Surgical History No pertinent past surgical history Family History Denies family history of CAD (coronary artery disease) Social History Smoking and tobacco status: never smoked Alcohol intake: never Household members: family Housing: House Physical Exam Const: COMMON NORMALS: no acute distress, average body habitus, patient oriented x3, no limitations, healthy appearing, alert and well nourished ORIENTATION/CONSCIOUSNESS: Yes awake, Yes oriented to person, Yes oriented to place and Yes oriented to time HENMT: COMMON NORMALS: normocephalic, atraumatic, hearing grossly normal bilaterally, external ears normal, EAC's normal, TM's normal bilaterally, Normal external nose present, Normal nasal mucous membranes and turbinates present, moist oral mucous membranes and oropharynx normal HEAD & SCALP: normal to inspection, normocephalic and atraumatic FACE & SINUS: normal facial exam and sinuses nontender NOSE: Normal external nose present and Normal nasal mucous membranes and turbinates present EXTERNAL EAR: Yes external ears normal EXTERNAL AUDITORY CANAL: EAC's normal TYMPANIC MEMBRANE: TM's normal bilaterally MOUTH: Normal oral and palatal mucosa present, lip normal and tongue normal THROAT: posterior oropharynx normal, tonsils normal and uvula midline Eye: COMMON NORMALS: Equal, round and reactive pupils present, EOMs intact bilaterally and conjunctivae normal CONJUNCTIVA: Yes conjunctivae normal PUPIL: Yes Equal, round and reactive pupils present Neck/C-Spine: COMMON NORMALS: full ROM, no lymphadenopathy and no meningeal signs GENERAL: Yes normal visual inspection, No anterior neck swelling and No submandibular swelling Resp: COMMON NORMALS: normal respiratory effort and clear to auscultation bilaterally AUSCULTATION: clear to auscultation bilaterally Cardio: COMMON NORMALS: regular rate and regular rhythm RATE: regular rate RHYTHM: regular rhythm Neuro: COMMON NORMALS: patient oriented x3 SENSORIUM/ORIENTATION: Yes alert, Yes oriented to person, Yes oriented to place and Yes oriented to time MENINGEAL SIGNS: Yes no meningeal signs Course ED course: XR was requested to come and re-shoot patient's CXR as it appears she has an overlying artifact present Repeat CXR normal. Vital Signs: Vital signs: Vital Signs Temperature 97.6 F 05/27/22 13:28 Pulse Rate 97 05/27/22 13:28 Respiratory Rate 14 05/27/22 13:28 Blood Pressure 107/72 05/27/22 13:28 Pulse Oximetry 98 05/27/22 13:28 Oxygen Delivery Me thod 05/27/22 13:28 MDM - URI/Sore Throat Medical Decision Making Most likely viral etiology. Initial CXR showing external artifact. Had them re- shoot and this is normal. Lab Data Radiology Impressions Chest X-Ray 05/27/22 14:24 IMPRESSION: 1. No acute cardiopulmonary finding. 2. Linear opaque density seen in the right hilar region superimposes the cardiac silhouette. This may be an artifact however a foreign body in the chest can't be excluded. Discharge Plan Discharge Patient Disposition: Home Clinical Impression: Upper respiratory virus Condition: Stable Prescriptions: No Action cetirizine [Children's Zyrtec Allergy] 1 mg/mL solution 10 mg PO DAILY PRN (Reason: allergy symptoms) Qty: 473 0RF Discharge Orders: Discharge ED (Routine); Ordered 05/27/22 Ordered By: Keisha Mujica Referrals: Wilmer Mathews DO [Primary Care Provider] - Patient Instructions: Upper Respiratory Infection in Children (ED), Upper Re spiratory Infection (DC), Upper Respiratory Infection - Pediatric Coding Level of Care Code ED Cutter Grind Tool Technician for Wanda Coleman
== END 2022-05-27 15:30 | disposition home or self-care (01) ==
PROVIDERS: Emergency Provider Physician Assistant; PCP Family Medicine
DX: J06.9 Acute upper respiratory infection, unspecified (principal)
CPT/HCPCS: 71045; 99283

== ENCOUNTER 2022-06-08 20:48 | Emergency (ER) | payer MEDICAID, SELFPAY ==
[2022-06-08 20:49] VITALS: BP 117/84; PULSE 115; RESP 16; TEMP 37; O2SAT 98; BMI 18.6
--- NOTE | 2022-06-08 21:00 | PC.NURSE ---
Advised Dr. Javed of patient's arrival, presentation, and complaints. Dr. Javed stated patient did not meet psychiatric precautions according to triage and report by EMS.
--- NOTE | 2022-06-08 21:34 | ED_ITS ---
Documented by User: Ezequiel Rivera DO 06/08/22 22:57 HPI - General Adult General: Chief complaint: General Medical Stated complaint: behavioral issues Time Seen by Provider: 06/08/22 21:07 History of Present Illness: Patient presents to the ER by EMS with complaints of behavioral issues. Patient states she got angry and hit her head on the floor through her phone. Family wanted her sent here for further evaluation behavioral issues. Patient denies suicidal homicidal ideation and hallucinations. Patient does have some intellectual developmental disorder and possible autism. He is pleasant, smiling laughing and appropriate. MD complaint: Behavioral issues Onset (ago): day(s) (Today) Associated symptoms: Deny chest pain, dyspnea, headache(s), nausea, rash, palpitations or vomiting Treatments prior to arrival: none Review of Systems General: Reports: 10 or more systems reviewed and unremarkable except in HPI and below Const: Denies: fever(s) or chills Eyes: Denies: change in vision or blurry vision ENMT: Denies: throat pain or odynophagia Card: Denies: chest pain or palpitations Resp: Denies: dyspnea or productive cough GI: Denies: abdominal pain, nausea, vomiting or diarrhea Musc: Denies: neck pain or back pain Skin/Breast: Denies: rash or pruritus Neuro: Denies: headache(s) or numbness in extremities Psych: Denies: anxiety or depression Endo: Denies: polyuria or polydipsia [facility] ED PFSH: Medical History No pertinent family history Psychiatric care Surgical History No pertinent past surgical history Family History Denies family history of CAD (coronary artery disease) Social History Smoking and tobacco status: never smoked Alcohol intake: never Household members: family Housing: House Physical Exam Const: COMMON NORMALS: no acute distress, average body habitus, patient oriented x3, no limitations, healthy appearing, alert and well nourished HENMT: COMMON NORMALS: normocephalic, atraumatic, hearing grossly normal bilaterally, external ears normal and Normal external nose present HEAD & SCALP: normocephalic and atraumatic NOSE: Normal external nose present EXTERNAL EAR: Yes external ears normal Eye: COMMON NORMALS: Equal, round and reactive pupils present, EOMs intact bilaterally, conjunctivae normal and no scleral icterus CONJUNCTIVA: Yes conjunctivae normal PUPIL: Yes Equal, round and reactive pupils present Neck/C-Spine: COMMON NORMALS: full ROM, no lymphadenopathy, supple, no meningeal signs, no JVD and Thyroid normal THYROID: Thyroid normal Chest: COMMONS NORMALS: normal inspection of the chest and normal palpation of entire chest wall Resp: COMMON NORMALS: normal respiratory effort, No retractions, No use of accessory muscles and clear to auscultation bilaterally AUSCULTATION: clear to auscultation bilaterally Cardio: COMMON NORMALS: no JVD, regular rate, regular rhythm, S1 normal heart sound present, S2 normal heart sound present, No gallops present (Cardio), No clicks present (Cardio), No murmurs present (Cardio) and No rub (Cardio) RATE: regular rate RHYTHM: regular rhythm HEART SOUNDS: S1 normal heart sound present and S2 normal heart sound present GI: COMMON NORMALS: Normal to inspection, nondistended, normoactive bowel sounds present, Soft to palpation, non-tender, No hepatosplenomegaly present, no masses and no bruits PALPATION: Yes Soft to palpation and Yes No hepatosplenomegaly present Neuro: COMMON NORMALS: patient oriented x3, CN's II-XII intact bilaterally, moves all extremities, no focal motor deficits and no sensory deficits noted SENSORIUM/ORIENTATION: Yes alert MENINGEAL SIGNS: Yes no meningeal signs Psych: COMMON NORMALS: mental status grossly normal, Normal thought process present, cooperative, normal affect, speech normal, activity/motor behavior normal, denies hallucinations, denies homicidal ideation and denies suicidal i deation SPEECH: Yes normal speech THOUGHT PROCESS: Normal thought process present Course Vital Signs: Vital signs: Vital Signs Temperature 98.6 F 06/08/22 20:49 Pulse Rate 115 H 06/08/22 20:49 Respiratory Rate 16 06/08/22 20:49 Blood Pressure 117/84 06/08/22 20:49 Pulse Oximetry 98 06/08/22 20:49 Oxygen Delivery Me thod 06/08/22 20:49 MDM - General Adult Medical Decision Making Patient presents to the ER by EMS for behavioral issues. Appears patient got angry and hit her head on the floor and threw her phone. Patient denies any other issues other than possibly a mild headache. It appears patient's family wanted her sent here to be further evaluated for these behavioral issues. Patient denies any suicidal ideation homicidal ideation or hallucinations. Vivi ent is alert oriented coherent and pleasant. Patient will be discharged home as she appears no apparent threat to herself or anyone at this time. Differential Diagnosis Behavioral issues Lab Data 06/08/22 23:20 06/08/22 23:20 Radiology Impressions Chest X-Ray 06/08/22 22:53 IMPRESSION: No acute findings. Laboratory Results WBC 7.5 10^3/uL (4.5-13.0) 06/08/22 23: RBC 4.67 10^6/uL (4.1-5.3) 06/08/22 23:20 Hgb 13.1 g/dL (11.5-15.3) 06/08/22 23: Hct 40.0 % (37.0-47.0) 06/08/22 23: MCV 85.7 fl (81-99) 06/08/22 23: MCH 28.1 pg (28.0-34.0) 06/08/22 23: MCHC 32.8 g/dL (30.0-36.0) 06/08/22 23:20 RDW 12.5 % (12.1-15.1) 06/08/22 23:20 Plt Count 288 10^3/cmm (130-400) 06/08/22 23: MPV 9.3 fL (7.4-10.4) 06/08/22 23:20 Neut % (Auto) 73.3 % 06/08/22 23:20 Lymph % (Auto) 17.2 % 06/08/22 23:20 [place] % (Auto) 7.2 % 06/08/22 23: Eos % (Auto) 1.5 % 06/08/22 23:20 Baso % (Auto) 0.5 % 06/08/22 23:20 Neut # (Auto) 5.51 10^3/uL (1.8-8.0) 06/08/22 23: Lymph # (Auto) 1.3 10^3/uL (1.5-6.5) L 06/08/22 23:20 [place] # (Auto) 0.5 10^3/uL (0.2-0.9) 06/08/22 23:20 Eos # (Auto) 0.1 10^3/uL (0.0-0.8) 06/08/22 23:20 Baso # (Auto) 0.0 10^3/uL (0.0-0.1) 06/08/22 23:20 Nucleated RBC % (auto) 0 % 06/08/22 23:20 Nucleated RBCs # 0.0 /100WBC 06/08/22 23:20 Sodium 139 mmol/L (136-145) 06/08/22 23:20 Chloride 105 mmol/L (98-107) 06/08/22 23:20 Carbon Dioxide 22 mmol/L (22-29) 06/08/22 23:20 Anion Gap 15.3 (5-19) 06/08/22 23:20 BUN 10 mg/dL (6-20) 06/08/22 23:20 Creatinine 0.5 mg/dL (0.5-0.9) 06/08/22 23:20 Glucose 109 mg/dL (65-115) 06/08/22 23:20 Calculated Osmolality 288 mOsm/kg (285-295) 06/08/22 23:20 Calcium 8.6 mg/dL (8.5-10.5) 06/08/22 23:20 Total Bilirubin 0.2 mg/dL (0.15-1.2) 06/08/22 23:20 AST 21 U/L (0-32) 06/08/22 23:20 ALT 14 U/L (0-33) 06/08/22 23:20 Alkaline Phosphatase 70 U/L (35-105) 06/08/22 23:20 Total Protein 7.3 g/dL (6.6-8.7) 06/08/22 23:20 Albumin 4.0 g/dL (3.5-5.2) 06/08/22 23:20 Globulin 3.3 g/dL (1.3-4.6) 06/08/22 23:20 TSH 1.69 uIU/mL (0.27-4.20) 06/08/22 23:20 Free T4 1.09 ng/dL (0.82-1.77) 06/08/22 23:20 Free T3 3.8 PG/ML (2.0-4.4) 06/08/22 23:20 HCG, Qual Negative (Negative) 06/08/22 23:28 Urine Color Yellow (Yellow) 06/08/22 23:28 Urine Appearance Clear (CLEAR) 06/08/22 23:28 Urine pH 8 (5-7) H 06/08/22 23:28 Ur Specific [place]illi[place] 1.010 (1.005-1.030) 06/08/22 23:28 Urine Protein Neg (Negative) 06/08/22 23: Urine Glucose (UA) Norm (Normal) 06/08/22 23: Urine Ketones Negative (Negative) 06/08/22 23: Urine Blood 2+ (Negative) H 06/08/22 23:28 Urine Nitrate Negative (Negative) 06/08/22 23:28 Urine Bilirubin Neg (Negative) 06/08/22 23:28 Prot Sulfosalicylic Acd Negative (Negative) 06/08/22 23:28 Urine Urobilinogen Norm mg/dL (Negative) 06/08/22 23:28 Ur Leukocyte Esterase Negative (Negative) 06/08/22 23:28 Urine RBC 0-4 /hpf (0-2) H 06/08/22 23:28 Urine WBC None /hpf (0-5) 06/08/22 23:28 Ur Squamous Epith Cells None /hpf (0-5) 06/08/22 23:28 Amorphous Sediment Not Reportable 06/08/22 23:28 Urine Bacteria Trace /hpf (NONE) 06/08/22 23:28 Discharge Plan Discharge Patient Disposition: Home Clinical Impression: Behavioral problem Condition: Stable Prescriptions: New valproic acid (as sodium salt) 500 mg/10 mL (10 mL) solution 500 mg PO ONCE 30 Days Qty: 300 0RF Rx Instructions: take in morning substitue sprinkles if possible valproic acid (as sodium salt) 250 mg/5 mL (5 mL) solution 250 mg PO ONCE 30 Days Qty: 150 0RF Rx Instructions: take at night substitute sprinkles if possible No Action medroxyprogesterone [Depo-Provera] 150 mg/mL syringe 150 mg IM ONCE Qty: 1 0RF cetirizine [Children's Zyrtec Allergy] 1 mg/mL solution 10 mg PO DAILY PRN (Reason: allergy symptoms) Qty: 473 0RF valproic acid (as sodium salt) 500 mg/10 mL (10 mL) solution 250 mg PO BID Qty: 300 1RF Discharge Orders: Discharge ED (Routine); Ordered 06/08/22 Ordered By: Ezequiel Rivera Referrals: Wilmer Mathews DO [Primary Care Provider] - 1 week Discharge Diet: Advance as tolerated Discharge Activity: Resume usual activity Patient Instructions: Depression (ED) Coding Level of Care Code ED Banquet Kitchen Supervisor for Chg Fwd Documented by User: Severino Javed MD 06/09/22 00:52 HPI - General Adult General: Chief complaint: General Medical Stated complaint: behavioral issues Time Seen by Provider: 06/08/22 21:07 [facility] ED PFSH: Medical History No pertinent family history Psychiatric care Surgical History No pertinent past surgical history Family History Denies family history of CAD (coronary artery disease) Social History Smoking and tobacco status: never smoked Alcohol intake: never Household members: family Housing: House Course Vital Signs: Vital signs: Vital Signs Temperature 98.6 F 06/08/22 20:49 Pulse Rate 115 H 06/08/22 20:49 Respiratory Rate 16 06/08/22 20:49 Blood Pressure 117/84 06/08/22 20:49 Pulse Oximetry 98 06/08/22 20:49 Oxygen Delivery Me thod 06/08/22 20:49 MDM - General Adult Medical Decision Making Patient presents to the ER by EMS for behavioral issues. Appears patient got angry and hit her head on the floor and threw her phone. Patient denies any other issues other than possibly a mild headache. It appears patient's family wanted her sent here to be further evaluated for these behavioral issues. Patient denies any suicidal ideation homicidal ideation or hallucinations. Patient is alert oriented coherent and pleasant. Patient will be discharged home as she appears no apparent threat to herself or anyone at this time. Patient was evaluated by Dr. Knight is found to be the issue is that she is prescribed Depakote pills she has not been able to take pills she has not had any of her meds after speaking to family they are okay with going home if we change the Depakote to liquid I did give her a dose of sprinkles here and will write a prescription for liquid Depakote at home she is to follow-up with her psychiatrist and return if worsening. Lab Data 06/08/22 23:20 06/08/22 23:20 Radiology Impressions Chest X-Ray 06/08/22 22:53 IMPRESSION: No acute findings. Laboratory Results WBC 7.5 10^3/uL (4.5-13.0) 06/08/22 23:20 RBC 4.67 10^6/uL (4.1-5.3) 06/08/22 23:20 Hgb 13.1 g/dL (11.5-15.3) 06/08/22 23:20 Hct 40.0 % (37.0-47.0) 06/08/22 23:20 MCV 85.7 fl (81-99) 06/08/22 23:20 MCH 28.1 pg (28.0-34.0) 06/08/22 23:20 MCHC 32.8 g/dL (30.0-36.0) 06/08/22 23:20 RDW 12.5 % (12.1-15.1) 06/08/22 23:20 Plt Count 288 10^3/cmm (130-400) 06/08/22 23:20 MPV 9.3 fL (7.4-10.4) 06/08/22 23:20 Neut % (Auto) 73.3 % 06/08/22 23:20 Lymph % (Auto) 17.2 % 06/08/22 23:20 [place] % (Auto) 7.2 % 06/08/22 23:20 Eos % (Auto) 1.5 % 06/08/22 23:20 Baso % (Auto) 0.5 % 06/08/22 23:20 Neut # (Auto) 5.51 10^3/uL (1.8-8.0) 06/08/22 23:20 Lymph # (Auto) 1.3 10^3/uL (1.5-6.5) L 06/08/22 23:20 [place] # (Auto) 0.5 10^3/uL (0.2-0.9) 06/08/22 23:20 Eos # (Auto) 0.1 10^3/uL (0.0-0.8) 06/08/22 23:20 Baso # (Auto) 0.0 10^3/uL (0.0-0.1) 06/08/22 23:20 Nucleated RBC % (auto) 0 % 06/08/22 23:20 Nucleated RBCs # 0.0 /100WBC 06/08/22 23:20 Sodium 139 mmol/L (136-145) 06/08/22 23:20 Chloride 105 mmol/L (98-107) 06/08/22 23:20 Carbon Dioxide 22 mmol/L (22-29) 06/08/22 23:20 Anion Gap 15.3 (5-19) 06/08/22 23:20 BUN 10 mg/dL (6-20) 06/08/22 23:20 Creatinine 0.5 mg/dL (0.5-0.9) 06/08/22 23:20 Glucose 109 mg/dL (65-115) 06/08/22 23:20 Calculated Osmolality 288 mOsm/kg (285-295) 06/08/22 23:20 Calcium 8.6 mg/dL (8.5-10.5) 06/08/22 23:20 Total Bilirubin 0.2 mg/dL (0.15-1.2) 06/08/22 23:20 AST 21 U/L (0-32) 06/08/22 23:20 ALT 14 U/L (0-33) 06/08/22 23:20 Alkaline Phosphatase 70 U/L (35-105) 06/08/22 23:20 Total Protein 7.3 g/dL (6.6-8.7) 06/08/22 23:20 Albumin 4.0 g/dL (3.5-5.2) 06/08/22 23: Globulin 3.3 g/dL (1.3-4.6) 06/08/22 23: TSH 1.69 uIU/mL (0.27-4.20) 06/08/22 23:20 Free T4 1.09 ng/dL (0.82-1.77) 06/08/22: Free T3 3.8 PG/ML (2.0-4.4) 06/08/22 23:20 HCG, Qual Negative (Negative) 06/08/22 23: Urine Color Yellow (Yellow) 06/08/22 23: Urine Appearance Clear (CLEAR) 06/08/22 23: Urine pH 8 (5-7) H 06/08/22 23:28 Ur Specific [place] 1.010 (1.005-1.030) 06/08/22 23: Urine Protein Neg (Negative) 06/08/22 23: Urine Glucose (UA) Norm (Normal) 06/08/22 23: Urine Ketones Negative (Negative) 06/08/22 23:28 Urine Blood 2+ (Negative) H 06/08/22 23:28 Urine Nitrate Negative (Negative) 06/08/22 23: Urine Bilirubin Neg (Negative) 06/08/22 23: Prot Sulfosalicylic Acd Negative (Negative) 06/08/22 23: Urine Urobilinogen Norm mg/dL (Negative) 06/08/22 23: Ur Leukocyte Esterase Negative (Negative) 06/08/22 23: Urine RBC 0-4 /hpf (0-2) H 06/08/22 23:28 Urine WBC None /hpf (0-5) 06/08/22 23:28 Ur Squamous Epith Cells None /hpf (0-5) 06/08/22 23: Amorphous Sediment Not Reportable 06/08/22 23: Urine Bacteria Trace /hpf (NONE) 06/08/22 23:28 Discharge Plan Discharge Patient Disposition: Home Clinical Impression: Behavioral problem Condition: Stable Prescriptions: New valproic acid (as sodium salt) 500 mg/10 mL (10 mL) solution 500 mg PO ONCE 30 Days Qty: 300 0RF Rx Instructions: take in morning substitue sprinkles if possible valproic acid (as sodium salt) 250 mg/5 mL (5 mL) solution 250 mg PO ONCE 30 Days Qty: 150 0RF Rx Instructions: take at night substitute sprinkles if possible No Action medroxyprogesterone [Depo-Provera] 150 mg/mL syringe 150 mg IM ONCE Qty: 1 0RF cetirizine [Children's Zyrtec Allergy] 1 mg/mL solution 10 mg PO DAILY PRN (Reason: allergy symptoms) Qty: 473 0RF valproic acid (as sodium salt) 500 mg/10 mL (10 mL) solution 250 mg PO BID Qty: 300 1RF Discharge Orders: Discharge ED (Routine); Ordered 06/08/22 Ordered By: Ezequiel Rivera Referrals: Wilmer Mathews DO [Primary Care Provider] - 1 week Discharge Diet: Advance as tolerated Discharge Activity: Resume usual activity Patient Instructions: Depression (ED) Coding Level of Care Code ED Banquet Kitchen Supervisor for Wanda Coleman
--- NOTE | 2022-06-08 21:36 | PC.NURSE ---
Dr. Rivera also agreed patient does not meet psych precautions and will discharge patient.
--- NOTE | 2022-06-08 22:53 | XRR_ITS ---
PROCEDURE INFORMATION: Exam: XR Chest Exam date and time: 06/08/2022 11:09 PM Age: 21 years old Clinical indication: Cough; Additional info: Psychiatric illness TECHNIQUE: Imaging protocol: Radiologic exam of the chest. Views: 1 view. COMPARISON: CR XR chest 1V portable [id number] 05/27/2022 1:41 PM FINDINGS: Lungs: No consolidation. Pleural spaces: Unremarkable. No pleural effusion. No pneumothorax. Heart/Mediastinum: No cardiomegaly. Bones/joints: No acute findings. Other findings: Again seen are probable clothing artifacts throughout. XR/XR chest 1V portable [id number] IMPRESSION: No acute findings.
[2022-06-08 23:34] LABS: Basophils % 0.5 %; Eosinophils # 0.1 10^3/uL (0.0-0.8); Eosinophils % 1.5 %; Hemoglobin 13.1 g/dL (11.5-15.3); Lymphocytes # 1.3 10^3/uL (1.5-6.5); Lymphocytes % 17.2 %; Mean Corpuscular HGB Conc 32.8 g/dL (30.0-36.0); Mean Corpuscular Hemoglobin 28.1 pg (28.0-34.0); Mean Corpuscular Volume 85.7 fl (81-99); Mean Platelet Volume 9.3 fL (7.4-10.4); Monocytes # 0.5 10^3/uL (0.2-0.9); Monocytes % 7.2 %; Neutrophils # 5.51 10^3/uL (1.8-8.0); Neutrophils % 73.3 %; Nucleated Red Blood Cells % 0 %; Platelet Count 288 10^3/cmm (130-400); Red Blood Count 4.67 10^6/uL (4.1-5.3); Red Cell Distribution Width 12.5 % (12.1-15.1); White Blood Count 7.5 10^3/uL (4.5-13.0)
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
[2022-06-08 23:46] LABS: HCG Qualitative Urine. Negative (Negative)
[2022-06-08 23:52] LABS: Add Urine Microscopic? YES; Bilirubin Urine Neg (Negative); Blood Urine 2+ (Negative); Glucose Urine UA Norm (Normal); Ketones Urine Negative (Negative); Leukocyte Esterase Urine Negative (Negative); Nitrate Urine Negative (Negative); Protein Urine Neg (Negative); Sulfosalicylic Acid Urine Negative (Negative); Urine Appearance Clear (CLEAR); Urine Color Yellow (Yellow); Urobilinogen Urine Norm (Negative); pH Urine 8 (5-7)
[2022-06-08 23:53] LABS: Bacteria Urine TRACE /hpf; RBC Urine 0-4 /hpf (0-2)
[2022-06-09 00:08] LABS: Alanine Aminotransferase 14 U/L (0-33); Alkaline Phosphatase 70 U/L (35-105); Anion Gap 15.3 (5-19); Aspartate Amino Transferase 21 U/L (0-32); Blood Urea Nitrogen 10 mg/dL (6-20); Calcium 8.6 mg/dL (8.5-10.5); Carbon Dioxide 22 mmol/L (22-29); Chloride 105 mmol/L (98-107); Free T4 Free Thyroxine 1.09 ng/dL (0.82-1.77); Globulin 3.3 g/dL (1.3-4.6); Glomerular Filtration Rate 157.3 mL/min (90-130); Glucose 109 mg/dL (65-115); Osmolality Calculated 288 mOsm/kg (285-295); Potassium 3.3 mmol/L (3.5-5.1); Sodium 139 mmol/L (136-145); T3 Free 3.8 PG/ML (2.0-4.4); Thyroid Stimulating Hormone 1.69 uIU/mL (0.27-4.20); Total Bilirubin 0.2 mg/dL (0.15-1.2); Total Protein 7.3 g/dL (6.6-8.7)
[2022-06-09] MEDS: divalproex Sprinkles 125 mg Capsule 250 MG PO (00:35)
[2022-06-09 01:26] LABS: Vitamin B12 538 pg/mL (232-1245)
[2022-06-09 01:36] LABS: Acetaminophen < 5.0 ug/mL (10-30); Alcohol Level < 10 mg/dL (0-10); Salicylate < 0.3 mg/dL (3-10)
[2022-06-10 15:05] LABS: RPR w(Moniotor) w/REFL Titer NON-REACTIVE (NON-REACTIVE)
== END 2022-06-09 00:40 | disposition home or self-care (01) ==
PROVIDERS: Emergency Medicine; Emergency Provider Emergency Medicine; PCP Family Medicine
DX: R46.89 Other symptoms and signs involving appearance and behavior (principal)
CPT/HCPCS: 71045; 80053; 80307; 81001; 81025; 82607; 84439; 84443; 84481; 85025; 86592; 99284

== ENCOUNTER 2022-07-05 11:53 | Emergency (ER) | payer MEDICAID, SELFPAY ==
[2022-07-05 11:58] VITALS: BP 108/74; PULSE 85; RESP 15; TEMP 36.4; O2SAT 98; BMI 17.7
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
== END 2022-07-05 14:06 | disposition home or self-care (01) ==
PROVIDERS: Emergency Provider Physician Assistant; PCP Family Medicine
DX: S09.8XXA Other specified injuries of head, initial encounter (principal); F84.0 Autistic disorder; W22.09XA Striking against other stationary object, initial encounter; R45.88 Nonsuicidal self-harm
CPT/HCPCS: 70450; 99284

== ENCOUNTER 2022-07-07 12:47 | Emergency (ER) | payer MEDICAID, SELFPAY ==
--- NOTE | 2022-07-07 12:52 | ECG_ITS ---
[facility] Test Date: 2022-07-07 Pat Name: Ronda Prado Department: Room: Gender: Female Hospital Nurse: : 2000 Requested By: Juan Pablo William Order Number: [id number] Michel MD: Lencho Garcia M.D. Measurements Intervals [place] Rate: 81 P: -26 VT: 118 QRS: 146 QRSD: 80 T: 150 QT: 351 QTc: 409 Interpretive Statements SINUS RHYTHM WITH SHORT VT INTERVAL POSSIBLE RIGHT VENTRICULAR CONDUCTION DELAY [RSR (QR) IN V1/V2] LEFT POSTERIOR FASCICULAR BLOCK [QRS AXIS > 109, INFERIOR Q] No previous ECG available for comparison Electronically Signed On 07-07-2022 17:09:11 CDT by Lencho Garcia M.D. [email or web address]
[2022-07-07 12:55] VITALS: BP 93/57; PULSE 79; RESP 16; TEMP 36.3; O2SAT 97; BMI 17.7
--- NOTE | 2022-07-07 14:02 | XRR_ITS ---
PROCEDURE INFORMATION: Exam: XR Chest Exam date and time: 07/07/2022 2:30 PM Age: 21 years old Clinical indication: Pain; Angina pectoris; Additional info: Chest pain TECHNIQUE: Imaging protocol: Radiologic exam of the chest. Views: 1 view. COMPARISON: CR (CHEST, ) 06/08/2022 11:09 PM FINDINGS: Lungs: Interstitial prominence, without acute airspace disease. Pleural spaces: No pleural effusion. Heart/Mediastinum: Normal configuration of the heart. Bones/joints: Mild scoliosis. XR/XR chest 1V portable [id number] IMPRESSION: Interstitial prominence, without acute airspace disease.
[2022-07-07 14:12] VITALS: BP 91/65; O2SAT 97
[2022-07-07 14:30] VITALS: BP 110/56; O2SAT 100
--- NOTE | 2022-07-07 14:31 | W.ED.CHESTPA ---
HPI - Chest Pain General: Chief Complaint: Chest Pain Stated Complaint: chest pain Time Seen by Provider: 07/07/22 14:02 History of Present Illness: Patient presents to the ER with complaints of substernal chest pain starting last night. Patient said nothing makes it better nothing makes it worse. Patient denies any other symptoms at this time. MD complaint: chest pain Onset (ago): day(s) (Started last night) Timing of current episode: constant Prior episodes: No Pain location: substernal Pain radiation: none Severity: mild Relieving factors: nothing Exacerbating factors: nothing Associated symptoms: Reports no associated symptoms; Deny abdominal pain, dyspnea, fever(s), nausea, palpitations or vomiting Treatment prior to arrival: none Review of Systems General: Reports: 10 or more systems reviewed and unremarkable except in HPI and below Const: Denies: fever(s) or chills Eyes: Denies: change in vision or photophobia ENMT: Denies: throat pain or enlarged tonsils Card: Reports: chest pain; Denies: palpitations or irregular heart rhythm Resp: Denies: dyspnea, productive cough or non-productive cough GI: Denies: abdominal pain, nausea or vomiting : Denies: flank pain or difficulty voiding Musc: Denies: neck pain or back pain Skin/Breast: Denies: rash or pruritus PFSH ED PFSH: Medical History No pertinent family history Psychiatric care Surgical History No pertinent past surgical history Family History Denies family history of CAD (coronary artery disease) Social History Smoking and tobacco status: never smoked Alcohol intake: never Substance/Drug Use: never Household members: family Housing: House Physical Exam Const: COMMON NORMALS: no acute distress, average body habitus, patient oriented x3, no limitations, healthy appearing, alert and well nourished HENMT: COMMON NORMALS: normocephalic, atraumatic, hearing grossly normal bilaterally, external ears normal, Normal external nose present and moist oral mucous membranes HEAD & SCALP: normocephalic and atraumatic NOSE: Normal external nose present EXTERNAL EAR: Yes external ears normal Eye: COMMON NORMALS: Equal, round and reactive pupils present, EOMs intact bilaterally, conjunctivae normal and no scleral icterus CONJUNCTIVA: Yes conjunctivae normal PUPIL: Yes Equal, round and reactive pupils present Neck/C-Spine: COMMON NORMALS: full ROM, no lymphadenopathy, supple, no meningeal signs, no JVD and Thyroid normal THYROID: Thyroid normal Lymph: LYMPHATIC: no lymphadenopathy noted Chest: COMMONS NORMALS: normal inspection of the chest Resp: COMMON NORMALS: normal respiratory effort, No retractions, No use of accessory muscles and clear to auscultation bilaterally EFFORT & INSPECTION: Yes other (Pain with palpation along the sternum which reproduces the pain) AUSCULTATION: clear to auscultation bilaterally Cardio: COMMON NORMALS: no JVD, regular rate, regular rhythm, S1 normal heart sound present and S2 normal heart sound present RATE: regular rate RHYTHM: regular rhythm HEART SOUNDS: S1 normal heart sound present and S2 normal heart sound present GI: COMMON NORMALS: Normal to inspection, nondistended, normoactive bowel sounds present, Soft to palpation, non-tender, No hepatosplenomegaly present and no masses PALPATION: Yes Soft to palpation and Yes No hepatosplenomegaly present Neuro: COMMON NORMALS: patient oriented x3 SENSORIUM/ORIENTATION: Yes alert MENINGEAL SIGNS: Yes no meningeal signs Course Vital Signs: Vital signs: Vital Signs Temperature 97.4 F L 07/07/22 12:55 Pulse Rate 79 07/07/22 12:55 Respiratory Rate 16 07/07/22 12:55 Blood Pressure 98/54 07/07/22 16:00 Pulse Oximetry 99 07/07/22 16:00 Oxygen Delivery Me thod Room Air 07/07/22 12:55 MDM - Chest Pain Medical Decision Making Patient presents to the ER complaining of substernal chest pain x1 day. Nothing makes his pain better nothing makes his pain worse. Patient was worked up in normal chest pain fashion with serial enzymes EKGs and x-rays. All of which showed results that were benign. It is thought the patient has atypical chest pain. Patient be discharged home to follow-up with primary care in approximately 1 week or sooner as needed. Differential Diagnosis Unlikely acute massive pulmonary embolism, acute respiratory failure, acute myocardial infarction, cardiac arrest or sudden cardiac Medical Records I reviewed the patient's medical records. Lab Data I reviewed the patient's lab results. 07/07/22 14:21 07/07/22 14:21 Radiology Impressions Chest X-Ray 07/07/22 14:02 IMPRESSION: Interstitial prominence, without acute airspace disease. Laboratory Results WBC 5.7 10^3/uL (4.5-13.0) 07/07/22 14:21 RBC 4.64 10^6/uL (4.1-5.3) 07/07/22 14:21 Hgb 13.1 g/dL (11.5-15.3) 07/07/22 14:21 Hct 41.1 % (37.0-47.0) 07/07/22 14:21 MCV 88.6 fl (81-99) 07/07/22 14:21 MCH 28.2 pg (28.0-34.0) 07/07/22 14:21 MCHC 31.9 g/dL (30.0-36.0) 07/07/22 14:21 RDW 12.7 % (12.1-15.1) 07/07/22 14:21 Plt Count 161 10^3/cmm (130-400) 07/07/22 14:21 MPV 10.4 fL (7.4-10.4) 07/07/22 14:21 Neut % (Auto) 52.3 % 07/07/22 14:21 Lymph % (Auto) 37.1 % 07/07/22 14:21 Marshall % (Auto) 9.3 % 07/07/22 14:21 Eos % (Auto) 0.2 % 07/07/22 14:21 Baso % (Auto) 0.9 % 07/07/22 14:21 Neut # (Auto) 2.97 10^3/uL (1.8-8.0) 07/07/22 14:21 Lymph # (Auto) 2.1 10^3/uL (1.5-6.5) 07/07/22 14:21 Marshall # (Auto) 0.5 10^3/uL (0.2-0.9) 07/07/22 14:21 Eos # (Auto) 0.0 10^3/uL (0.0-0.8) 07/07/22 14:21 Baso # (Auto) 0.1 10^3/uL (0.0-0.1) 07/07/22 14:21 Nucleated RBC % (auto) 0 % 07/07/22 14:21 Nucleated RBCs # 0.0 /100WBC 07/07/22 14:21 Sodium 140 mmol/L (136-145) 07/07/22 14:21 Potassium 3.6 mmol/L (3.5-5.1) 07/07/22 14:21 Chloride 106 mmol/L (98-107) 07/07/22 14:21 Carbon Dioxide 24 mmol/L (22-29) 07/07/22 14:21 Anion Gap 13.6 (5-19) 07/07/22 14:21 BUN 13 mg/dL (6-20) 07/07/22 14:21 Creatinine 0.5 mg/dL (0.5-0.9) 07/07/22 14:21 GFR Calculation 157.3 mL/min (90-130) H 07/07/22 14:21 Glucose 66 mg/dL (65-115) 07/07/22 14:21 Calculated Osmolality 288 mOsm/kg (285-295) 07/07/22 14:21 Calcium 8.2 mg/dL (8.5-10.5) L 07/07/22 14:21 Total Bilirubin 0.2 mg/dL (0.15-1.2) 07/07/22 14:21 AST 14 U/L (0-32) 07/07/22 14:21 ALT 7 U/L (0-33) 07/07/22 14:21 Alkaline Phosphatase 52 U/L (35-105) 07/07/22 14:21 Total Protein 6.9 g/dL (6.6-8.7) 07/07/22 14:21 Albumin 4.1 g/dL (3.5-5.2) 07/07/22 14:21 Globulin 2.8 g/dL (1.3-4.6) 07/07/22 14:21 Urine Color Yellow (Yellow) 07/07/22 15:14 Urine Appearance Clear (CLEAR) 07/07/22 15:14 Urine pH 7 (5-7) 07/07/22 15:14 Ur Specific [place] 1.020 (1.005-1.030) 07/07/22 15:14 Urine Protein Neg (Negative) 07/07/22 15:14 Urine Glucose (UA) Norm (Normal) 07/07/22 15:14 Urine Ketones 1+ (Negative) H 07/07/22 15:14 Urine Blood Neg (Negative) 07/07/22 15:14 Urine Nitrate Negative (Negative) 07/07/22 15:14 Urine Bilirubin Neg (Negative) 07/07/22 15:14 Urine Urobilinogen 1 mg/dL (Negative) H 07/07/22 15:14 Ur Leukocyte Esterase Negative (Negative) 07/07/22 15:14 EKG Data EKG 1: I personally reviewed and interpreted this EKG as follows: EKG interpretation date: 07/07/22 EKG interpretation time: 12:59 Prior EKG tracings: not available for review Interpretation: EKG showed sinus rhythm with short LA interval, ventricular rate of 81 bpm, LA of 118, Q RS of 80 QTc of 409, possible left ventricular conduction delay, left posterior fascicular block no ST-T wave changes Discharge Plan Discharge Patient Disposition: Home Clinical Impression: Atypical chest pain Condition: Stable Prescriptions: No Action medroxyprogesterone [Depo-Provera] 150 mg/mL syringe 150 mg IM ONCE Qty: 1 0RF fluoxetine 40 mg capsule 40 mg PO DAILY Qty: 30 2RF valproic acid (as sodium salt) 250 mg/5 mL (5 mL) solution 250 mg PO QPM Rx Instructions: take at night substitute sprinkles if possible valproic acid (as sodium salt) 500 mg/10 mL (10 mL) solution 500 mg PO QAM Rx Instructions: take in morning substitue sprinkles if possible Discharge Orders: Discharge ED (Routine); Ordered 07/07/22 Ordered By: Ezequiel Rivera Referrals: Wilmer Mathews DO [Primary Care Provider] - 1 week Patient Instructions: Chest Pain - Noncardiac Coding Level of Care Code ED Setter Off for [place] [place]
[2022-07-07 14:39] LABS: Basophils # 0.1 10^3/uL (0.0-0.1); Basophils % 0.9 %; Eosinophils % 0.2 %; Hematocrit 41.1 % (37.0-47.0); Hemoglobin 13.1 g/dL (11.5-15.3); Lymphocytes # 2.1 10^3/uL (1.5-6.5); Lymphocytes % 37.1 %; Mean Corpuscular HGB Conc 31.9 g/dL (30.0-36.0); Mean Corpuscular Hemoglobin 28.2 pg (28.0-34.0); Mean Corpuscular Volume 88.6 fl (81-99); Mean Platelet Volume 10.4 fL (7.4-10.4); Monocytes # 0.5 10^3/uL (0.2-0.9); Monocytes % 9.3 %; Neutrophils # 2.97 10^3/uL (1.8-8.0); Neutrophils % 52.3 %; Nucleated Red Blood Cells % 0 %; Platelet Count 161 10^3/cmm (130-400); Red Blood Count 4.64 10^6/uL (4.1-5.3); Red Cell Distribution Width 12.7 % (12.1-15.1); White Blood Count 5.7 10^3/uL (4.5-13.0)
[2022-07-07 14:56] LABS: Alanine Aminotransferase 7 U/L (0-33); Albumin Level 4.1 g/dL (3.5-5.2); Alkaline Phosphatase 52 U/L (35-105); Anion Gap 13.6 (5-19); Aspartate Amino Transferase 14 U/L (0-32); Blood Urea Nitrogen 13 mg/dL (6-20); Calcium 8.2 mg/dL (8.5-10.5); Carbon Dioxide 24 mmol/L (22-29); Chloride 106 mmol/L (98-107); Globulin 2.8 g/dL (1.3-4.6); Glomerular Filtration Rate 157.3 mL/min (90-130); Glucose 66 mg/dL (65-115); Osmolality Calculated 288 mOsm/kg (285-295); Potassium 3.6 mmol/L (3.5-5.1); Sodium 140 mmol/L (136-145); Total Bilirubin 0.2 mg/dL (0.15-1.2); Total Protein 6.9 g/dL (6.6-8.7)
[2022-07-07 15:00] VITALS: BP 86/55; O2SAT 100
[2022-07-07 15:21] LABS: Add Urine Microscopic? NO; Charge for UA Resulting for Rev
[2022-07-07 15:44] LABS: Bilirubin Urine Neg (Negative); Blood Urine Neg (Negative); Glucose Urine UA Norm (Normal); Ketones Urine 1+ (Negative); Leukocyte Esterase Urine Negative (Negative); Nitrate Urine Negative (Negative); Protein Urine Neg (Negative); Urine Appearance Clear (CLEAR); Urine Color Yellow (Yellow); Urobilinogen Urine 1 mg/dL (Negative); pH Urine 7 (5-7)
[2022-07-07 16:00] VITALS: BP 98/54; O2SAT 99
[2022-07-07 16:20] VITALS: BP 98/54; PULSE 61; O2SAT 93
== END 2022-07-07 16:22 | disposition home or self-care (01) ==
PROVIDERS: Emergency Provider Emergency Medicine; PCP Family Medicine
DX: R07.89 Other chest pain (principal)
CPT/HCPCS: 36415; 71045; 80053; 81003; 85025; 93005; 99285

== ENCOUNTER 2022-07-10 22:20 | Emergency (ER) | payer MEDICAID, SELFPAY ==
[2022-07-10 22:33] VITALS: BP 107/51; PULSE 80; RESP 16; TEMP 37.1; O2SAT 98; BMI 19.2
--- NOTE | 2022-07-10 23:10 | W.ED.PSYCHS ---
HPI - Psych General: Chief Complaint: Psychiatric Symptoms Stated Complaint: SI Time Seen by Provider: 07/10/22 22:23 Source: patient and family Mode of arrival: ambulatory Limitations: no limitations History of Present Illness: 21-year-old female with a history of intellectual delay that is very well-known to the ER. Patient had been messaging voice over her mother took her phone away 4 hours ago she became angry she is hitting her head on the wall saying that she did not want to live anymore. I have seen her multiple times for the exact same thing in the past where she gets very upset and angry after her mom takes her phone away. Patient is now calm she denies any symptoms currently. Denies any worsening proving factors. Associated symptoms: Deny depression Review of Systems Const: Denies: fever(s) or chills ENMT: Denies: throat pain or dental pain Card: Denies: chest pain Resp: Denies: dyspnea GI: Denies: abdominal pain, nausea, vomiting or diarrhea : Denies: dysuria Musc: Denies: neck pain or back pain Skin/Breast: Denies: rash Neuro: Denies: headache(s) Psych: Reports: mood swings; Denies: depression Johann/Lymph: Denies: easy bruising All/Imm: Denies: urticaria PFSH ED PFSH: Medical History No pertinent family history Psychiatric care Surgical History No pertinent past surgical history Family History Denies family history of CAD (coronary artery disease) Social History Smoking and tobacco status: never smoked Alcohol intake: never Substance/Drug Use: never Household members: family Housing: House Physical Exam Const: COMMON NORMALS: no acute distress, patient oriented x3 and healthy appearing HENMT: COMMON NORMALS: normocephalic and atraumatic HEAD & SCALP: normocephalic and atraumatic Eye: COMMON NORMALS: conjunctivae normal CONJUNCTIVA: Yes conjunctivae normal Neck/C-Spine: COMMON NORMALS: full ROM and supple Chest: COMMONS NORMALS: normal inspection of the chest and normal palpation of entire chest wall Resp: COMMON NORMALS: normal respiratory effort, No retractions, No use of accessory muscles and clear to auscultation bilaterally AUSCULTATION: clear to auscultation bilaterally Cardio: COMMON NORMALS: regular rate, regular rhythm and No murmurs present (Cardio) RATE: regular rate RHYTHM: regular rhythm GI: COMMON NORMALS: Normal to inspection, nondistended, normoactive bowel sounds present, Soft to palpation, non-tender and no masses PALPATION: Yes Soft to palpation Extremity: COMMON NORMALS: normal to inspection and full ROM Neuro: COMMON NORMALS: patient oriented x3, moves all extremities and no focal motor deficits Psych: COMMON NORMALS: mental status grossly normal, Normal thought process present and cooperative THOUGHT PROCESS: Normal thought process present Skin: COMMON NORMALS: no rashes or lesions noted and no wounds GENERAL SKIN EXAM: no rashes or lesions noted Course Vital Signs: Vital signs: Vital Signs Temperature 98.7 F 07/10/22 22:33 Pulse Rate 76 07/10/22 23:53 Respiratory Rate 16 07/10/22 23:53 Blood Pressure 117/59 07/10/22 23:53 Pulse Oximetry 97 07/10/22 23:53 Oxygen Delivery Me thod Room Air 07/10/22 22:33 MDM - Psych Medical Decision Making Patient presents here with an anger outburst she is well-appearing here has been no suicidal or homicidal statements she was seen by Dr. Knight her psychiatrist who clears her she does not require admission she did request to have her Depakote sprinkles as she did not like taking the liquid has not been taking it so we will refill her sprinkles she is to follow-up with PCP and return if worsening. Medical Records I reviewed the patient's medical records. Lab Data I reviewed the patient's lab results. Discharge Plan Discharge Patient Disposition: Home Clinical Impression: Outbursts of anger Condition: Stable Prescriptions: New Depakote Sprinkles 125 mg capsule, delayed rel sprinkle 250 mg PO BID Qty: 60 0RF No Action medroxyprogesterone [Depo-Provera] 150 mg/mL syringe 150 mg IM ONCE Qty: 1 0RF fluoxetine 40 mg capsule 40 mg PO DAILY Qty: 30 2RF valproic acid (as sodium salt) 250 mg/5 mL (5 mL) solution 250 mg PO QPM Rx Instructions: take at night substitute sprinkles if possible valproic acid (as sodium salt) 500 mg/10 mL (10 mL) solution 500 mg PO QAM Rx Instructions: take in morning substitue sprinkles if possible Discharge Orders: Discharge ED (Routine); Ordered 07/10/22 Ordered By: Severino Javed Referrals: Wilmer Mathews, [Primary Care Provider] - 1-3 days Discharge Diet: Advance as tolerated Discharge Activity: Resume usual activity Patient Instructions: Depression (ED) Coding Level of Care Code ED Dietitian Consultant for Wanda Coleman
[2022-07-10] MEDS: LORazepam 1 mg Tablet PO (23:47)
[2022-07-10 23:53] VITALS: BP 117/59; PULSE 76; RESP 16; O2SAT 97
== END 2022-07-10 23:55 | disposition home or self-care (01) ==
PROVIDERS: Emergency Provider Emergency Medicine; PCP Family Medicine
DX: R45.4 Irritability and anger (principal)
CPT/HCPCS: 99285